=== PATIENT | male | born 1945 ===

== ENCOUNTER 2018-01-04 04:27 | Emergency (ER) | payer MEDICAID, MEDICARE, OTHER ==
[2018-01-04 04:30] VITALS: TEMP 97.7; BMI 26.7
[2018-01-04] MEDS ORDERED: Tetanus/Diphtheria Toxoids 0.5 ml Syringe IM ONE ×2 (04:53→05:04)
--- NOTE | 2018-01-04 05:01 | ED PDOC ---
HPI: Trauma/Fall - HPI History Per: Patient, Family History/Exam Limitations: language barrier Onset/Duration Of Symptoms: Hrs Location Of Injury: Posterior: Head Severity: Moderate Pain Scale Rating Of: 5 Associated Symptoms: denies: Dizziness, Dazed, LOC Additional Complaint(s): CC: head trauma HPI: 72 YO Male with PMH of HTN, HLD, and asthma presents to [facility] ED s/p head trauma. Per pt, he was sleeping in bed, and remembers waking up in the floor bleeding. Pt had pain in injury site but now rates the pain as moderate, 5/10. No hx of similar episodes in the past. Denies dizziness, headache, n/v/d/c and fevers. MD: Dr. Montero PMH: HTN, HLD, asthma SurgH: Pulmonary surgery 2004 SH: 45+yrs smoking hx, quit in 2004; occasional ETOH, no illicit drug use FH: hx of HTN Allergies: NDKA Meds: ASA, simvastatin, carvedilol, donepezil, fertilizing, singular, cyclobenzaprine, ketoconazole <Lori Robertson - Last Filed: 01/04/18 06:38> <Phillip Puri - Last Filed: 01/05/18 06:09> - HPI Time Seen by Provider: 01/04/18 04:41 Chief Complaint (Nursing): Trauma Supervising Attending Note - Supervising Attending Note The Documented history was done by the: Physician Skin Diver The documented physical exam was done by the: Physician Skin Diver The documented procedures were done by the: Physician Skin Diver - Attestation: I have personally seen and examined this patient.: Yes I have fully participated in the care of the patient.: Yes I have reviewed all pertinent clinical information, including history, physical exam and plan: Yes <Phillip Puri - Last Filed: 01/05/18 06:09> Past Medical History Vital Signs: Last Vital Signs Temp 97.7 F 01/04/18 04:36 Pulse 59 L 01/04/18 04:36 Resp 16 01/04/18 04:36 BP 131/67 01/04/18 04:36 Pulse Ox 95 01/04/18 04:36 - Medical History PMH: Asthma, HTN, Hyperlipidemia - Surgical History Other surgeries: pulmonary surgery 2004 - Family History Family History: States: Hypertension - Living Arrangements Living Arrangements: With Family - Social History Current smoker - smoking cessation education provided: No Ex-Smoker (has not smoked in the last 12 months): Yes (45+ year hx ) Alcohol: Occasional Drugs: Denies <Lori Robertson - Last Filed: 01/04/18 06:38> Vital Signs: Last Vital Signs Temp 97.7 F 01/04/18 04:36 Pulse 60 01/04/18 06:50 Resp 16 01/04/18 06:50 BP 120/60 01/04/18 06:50 Pulse Ox 98 01/04/18 06:50 <Phillip Puri - Last Filed: 01/05/18 06:09> - Allergies Allergies/Adverse Reactions: Allergies Allergy/AdvReac Type Severity Reaction Status Date / Time No Known Allergies Allergy Verified 01/04/18 04:39 Review of Systems Constitutional: Negative for: Fever, Chills Eyes: Negative for: Pain, Vision Change ENT: Negative for: Ear Pain, Ear Discharge Cardiovascular: Negative for: Chest Pain, Palpitations Respiratory: Negative for: Cough, Shortness of Breath Gastrointestinal: Negative for: Nausea Musculoskeletal: Negative for: Neck Pain, Shoulder Pain Neurological: Negative for: Weakness, Confusion, Altered Mental Status, Dizziness <Lori Robertson - Last Filed: 01/04/18 06:38> Physical Exam - Physical Exam Appears: Positive for: No Acute Distress Head Exam: Positive for: NORMOCEPHALIC (4cm verticle lac in the parietal bone, small edema surrounding the lac ) Skin: Positive for: Normal Color, Warm Eye Exam: Positive for: Normal appearance, EOMI, PERRL Neck: Positive for: Normal, Painless ROM Cardiovascular/Chest: Positive for: Regular Rate, Rhythm. Negative for: Murmur Respiratory: Positive for: Normal Breath Sounds Extremity: Positive for: Normal ROM Neurologic/Psych: Positive for: Alert, Oriented <AilynLori - Last Filed: 01/04/18 06:38> - ECG O2 Sat by Pulse Oximetry: 95 - Progress ED Course And Treament: Assessment/Plan: 72 YO Male with PMH of HTN, HLD and asthma is seen in ED s/p head lac after a fall. VS stable. Pt NAD -CT head w/o contrast -tetnus shot Ct Head w/o contrast EXAM: CT Head Without Intravenous Contrast EXAM DATE/TIME: 01/04/2018 4:53 AM CLINICAL HISTORY: 72 years old, male; Injury or trauma; Injury Head laceration. Back of the head; Initial encounter; Without residual foreign body; Scalp; Additional info: Head trauma TECHNIQUE: Axial computed tomography images of the head/brain without intravenous contrast. All CT scans at this facility use one or more dose reduction techniques, viz.: automated exposure control; ma/kV adjustment per patient size (including targeted exams where dose is matched to indication; i.e. head); or iterative reconstruction technique. Coronal and sagittal reformatted images were created and reviewed. 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 Areas of hypodensity in the white matter bilaterally, nonspecific in appearance , but most likely representing chronic small vessel ischemic changes, in a patient of this age. No significant acute abnormality identified. No acute hemorrhage seen within the brain. No acute extra-axial fluid collections visualized. No evidence of significant mass effect within the brain. VENTRICLES: No evidence of significant hydrocephalus. BONES/JOINTS: No acute fractures or other acute bony abnormality noted. SOFT TISSUES: Soft tissue swelling and multiple foci of air in the right upper posterior scalp, at the vertex/top of the head. The air is presumably secondary to the known soft tissue laceration. There is a 4 cm hematoma in the scalp in this area. VASCULATURE: Atherosclerotic calcification. SINUSES: Visualized paranasal sinuses appear clear. MASTOID AIR CELLS: Mastoid air cells appear clear. IMPRESSION: - No evidence of acute intracranial injury or fractures. - See above for remaining findings. Scalp lac is claned with 400ml of NS and betadine Repaired w/ [address] Post procedure VS stable, BP 110/60, HR 60 with O2 94 in RA Pt to be d/c home with OTC Tylenol for pain prn Pt to follow up with Dr. Montero for staple removal in 1 week, 7 days ER precautions given, please come back with dizziness, headache, nausea, blurry vision <Lori Robertson - Last Filed: 01/04/18 06:38> Procedures - Laceration/Wound Repair Head Wound Length (cm): 4 Wound's Depth, Shape: superficial Wound Explored: no foreign body removed Irrigated w/ Saline (ccs): 400 Betadine Prep?: Yes Anesthesia: 1% Lidocaine Wound Repaired With: [place] ([address] ) Wound Complexity: Simple <AilynLori - Last Filed: 01/04/18 06:38> Disposition - Patient ED Disposition Is Patient to be Admitted: No - Disposition Disposition: Routine/Home Disposition Time: 06:44 <Lori Robertson - Last Filed: 01/04/18 06:38> <Phillip Puir - Last Filed: 01/05/18 06:09> - Clinical Impression Clinical Impression: Laceration of scalp without foreign body, Head trauma - Disposition Referrals: Jos Olson MD [Staff Provider] - Condition: STABLE Additional Instructions: Pt to follow up with Dr. Montero for staple removal in 7 days ER precautions given, please come back with dizziness, headache, nausea, blurry vision Take OTC Tylenol for pain as needed Instructions: Concussion, Adult (DC), Closed Head Injury (DC), Laceration Repair With [place] (DC), Postconcussion Syndrome (DC) Forms: [employer] (Puerto Rican) Print Language: MONGOLIAN
[2018-01-04] MEDS ORDERED: Lidocaine 1% Inj (20ml) IJ ONE (06:06)
--- NOTE | 2018-01-04 06:14 | CT ---
EXAM: CT Head Without Intravenous Contrast EXAM DATE/TIME: 01/04/2018 4:53 AM CLINICAL HISTORY: 72 years old, male; Injury or trauma; Injury Head laceration. Back of the head; Initial encounter; Without residual foreign body; Scalp; Additional info: Head trauma TECHNIQUE: Axial computed tomography images of the head/brain without intravenous contrast. All CT scans at this facility use one or more dose reduction techniques, viz.: automated exposure control; ma/kV adjustment per patient size (including targeted exams where dose is matched to indication; i.e. head); or iterative reconstruction technique. Coronal and sagittal reformatted images were created and reviewed. 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 Areas of hypodensity in the white matter bilaterally, nonspecific in appearance, but most likely representing chronic small vessel ischemic changes, in a patient of this age. No significant acute abnormality identified. No acute hemorrhage seen within the brain. No acute extra-axial fluid collections visualized. No evidence of significant mass effect within the brain. VENTRICLES: No evidence of significant hydrocephalus. BONES/JOINTS: No acute fractures or other acute bony abnormality noted. SOFT TISSUES: Soft tissue swelling and multiple foci of air in the right upper posterior scalp, at the vertex/top of the head. The air is presumably secondary to the known soft tissue laceration. There is a 4 cm hematoma in the scalp in this area. VASCULATURE: Atherosclerotic calcification. SINUSES: Visualized paranasal sinuses appear clear. MASTOID AIR CELLS: Mastoid air cells appear clear. IMPRESSION: - No evidence of acute intracranial injury or fractures. - See above for remaining findings.
[2018-01-04 06:38] VITALS: PULSE 60
[2018-01-04 06:54] VITALS: BP 120/60; RESP 16; O2SAT 98
== END 2018-01-04 06:59 | disposition home or self-care (01) ==
LOC: H.ER 04:27
DX: S01.01XA Laceration without foreign body of scalp, initial encounter (principal); W06.XXXA Fall from bed, initial encounter; Y92.003 Bedroom of unspecified non-institutional (private) residence as the place of occurrence of the external cause; E78.5 Hyperlipidemia, unspecified; I10 Essential (primary) hypertension; J45.909 Unspecified asthma, uncomplicated; Z79.82 Long term (current) use of aspirin; Z82.49 Family history of ischemic heart disease and other diseases of the circulatory system; Z87.891 Personal history of nicotine dependence

== ENCOUNTER 2018-06-22 10:36 | Inpatient (IN) | payer MEDICARE, MEDICAID ==
[2018-06-22 10:36] VITALS: BMI 26.7
[2018-06-22 12:29] LABS: BASO % 0.7 % (0.0-2.0); EOS # 0.2 K/uL (0.0-0.7); EOS % 2.8 % (0.0-4.0); HEMOGLOBIN 13.1 g/dL (12.0-18.0); LYMPH # 1.3 K/uL (1.0-4.3); LYMPH % 18.1 % (20.0-40.0); MEAN CELL VOLUME 102.7 fl (80.0-94.0); MEAN CORPUSCULAR HEMOGLOBIN 34.2 pg (27.0-31.0); MEAN CORPUSCULAR HGB CONC 33.3 g/dL (33.0-37.0); MEAN PLATELET VOLUME 10.4 fl (7.2-11.7); MONO # 1.1 K/uL (0.0-0.8); MONO % 14.8 % (0.0-10.0); NEUT # 4.6 K/uL (1.8-7.0); NEUT % 63.6 % (50.0-75.0); NRBC % 0.2 % (0.0-0.0); RBC 3.84 Mil/uL (4.40-5.90); RED CELL DISTRIBUTION WIDTH 15.1 % (11.5-14.5); WHITE BLOOD COUNT 7.2 K/uL (4.8-10.8)
[2018-06-22 13:42] LABS: ALB/GLOB RATIO 0.8 (1.0-2.1); ALBUMIN 3.9 g/dL (3.5-5.0); CALCIUM 10.4 mg/dL (8.4-10.2)
[2018-06-22 13:50] LABS: INR 1.2
[2018-06-22 13:53] LABS: PARTIAL THROMBOPLASTIN TIME 43.1 Seconds (25.6-37.1)
--- NOTE | 2018-06-22 14:16 | US ---
Date of service: 06/22/2018 PROCEDURE: Bilateral lower extremity venous duplex Doppler. HISTORY: bilateral calf pain COMPARISON: None available. TECHNIQUE: Bilateral common femoral, superficial femoral, popliteal and posterior tibial veins were evaluated. Flow was assessed with color Doppler, compressibility, assessment of phasic flow and augmentation response. FINDINGS: COMMON FEMORAL VEIN: Right CFV: Unremarkable. Left CFV: Unremarkable. SUPERFICIAL FEMORAL VEIN: Right SFV: Unremarkable. Left SFV: Unremarkable. POPLITEAL VEIN: Right Popliteal: Unremarkable. Left Popliteal: Unremarkable. POSTERIOR TIBIAL VEIN: Right PTV: Unremarkable. Left PTV: Unremarkable. OTHER FINDINGS: None. IMPRESSION: No evidence of deep venous thrombosis.
[2018-06-22 15:28] LABS: SQUAMOUS EPITHIAL 4 /hpf (0-5); URINE AMORPHOUS SEDIMENT OCC /ul (<OCC); URINE BACTERIA OCC (<OCC); URINE BILIRUBIN NEGATIVE (NEGATIVE); URINE BLOOD LARGE (NEGATIVE); URINE CLARITY TURBID (Clear); URINE COLOR AMBER (YELLOW); URINE GLUCOSE (UA) NEG (Normal); URINE LEUKOCYTE ESTERASE NEG Leu/uL (Negative); URINE PROTEIN 100 mg/dL (NEGATIVE)
--- NOTE | 2018-06-22 17:14 | CT ---
Date of service: 06/22/2018 PROCEDURE: CT Abdomen and Pelvis without intravenous contrast HISTORY: elevated bilirubin, elevated LFT COMPARISON: Prior abdomen CT 09/08/[address] 05/25/2018. TECHNIQUE: Helical CT of the abdomen and pelvis was performed without oral or intravenous contrast as per referring physician request. Coronal and sagittal reformats were generated. Contrast dose: None Radiation dose: Total exam DLP = 642.66 mGy-cm. This CT exam was performed using one or more of the following dose reduction techniques: Automated exposure control, adjustment of the mA and/or kV according to patient size, and/or use of iterative reconstruction technique. FINDINGS: LOWER THORAX: A mild loculated right pleural effusion is evident with cardiomegaly. No pericardial or left pleural effusion evident. Underlying infiltrate is difficult exclude the right base. Small hiatal hernia is identified. LIVER: Mild hepatomegaly is identified. No focal hepatic mass appreciable. GALLBLADDER AND BILE DUCTS: Gallbladder is distended with retained calculi at the dependent portion likely intermixed with sludge. No significant mural thickening or pericholecystic fluid collection evident. PANCREAS: Unremarkable. No gross lesion or ductal dilatation. SPLEEN: Unremarkable. ADRENALS: Unremarkable. No mass. KIDNEYS AND URETERS: Nonspecific bilateral perinephric streaky changes are identified. No obstructive uropathy bilaterally. No radiodense urolithiasis identified. VASCULATURE: Nonaneurysmal abdominal aortic calcific atherosclerotic changes are identified. BOWEL: Stomach is collapsed. No bowel obstruction evident. Nonspecific streaky changes are identified at the bilateral para renal spaces as well as the inferior mid Mesentery which is of uncertain origin. No gross mural thickening seen throughout large or small bowel. No ascites or free intra peritoneal gas collection. APPENDIX: Not identified. No definite pattern to suggest appendicitis. PERITONEUM: Please see bowel section above. LYMPH NODES: Unremarkable. No enlarged lymph nodes. BLADDER: Bladder is partially contracted but with questionable pericystic reactive change and relatively prominent submucosal fat in a pattern that may reflect chronic inflammatory changes. Active, possible acute cystitis not excluded nevertheless. Clinically correlate further. REPRODUCTIVE: Unremarkable. BONES: A severe anterior wedge compression fracture of L1 is identified, a chronic finding. OTHER FINDINGS: None. IMPRESSION: 1. Findings suspicious but not definitive for potentially acute cystitis. Please see discussion above. 2. Nonspecific mid to inferior mesenteric reactive change as well as the bilateral pericolic gutters. No definitive enteritis or colitis pattern is appreciated specifically. Lack of contrast agents limits interpretation. No bowel obstruction identified. 3. Cholelithiasis within a distended gallbladder with likely intermixed sludge.
--- NOTE | 2018-06-22 17:47 | US ---
Date of service: 06/22/2018 HISTORY: elevated bilirubin, elevated LFT COMPARISON: June 22, 2018 CT abdomen and pelvis TECHNIQUE: Sonographic evaluation of the abdomen. FINDINGS: LIVER: Measures 17.3 cm. Hepatopedal blood flow. Fatty infiltration manifest ultrasonographically as increased echogenicity of the liver parenchyma. No mass. No intrahepatic bile duct dilatation. GALLBLADDER: Cholelithiasis. Negative study for gallbladder wall thickening, pericholecystic fluid, sonographic Spaulding's sign. Incidental finding(s): Sludge identified. COMMON BILE DUCT: Measures 5.0 mm. No stones. No dilatation. PANCREAS: Unremarkable as visualized. No mass. No ductal dilatation. RIGHT KIDNEY: Measures cm. Normal echogenicity. No calculus, mass, or hydronephrosis. LEFT KIDNEY: Measures cm. Normal echogenicity. No calculus, mass, or hydronephrosis. SPLEEN: Normal in size and contour. No mass. AORTA: No aneurysmal dilatation. IVC: Unremarkable. OTHER FINDINGS: Incompletely visualized right pleural effusion IMPRESSION: Cholelithiasis. No sonographic evidence of acute cholecystitis.
--- NOTE | 2018-06-22 18:54 | ED PDOC ---
Lower Extremity Pain/Injury Time Seen by Provider: 06/22/18 10:52 Chief Complaint (Nursing): Male Genitourinary Chief Complaint (Provider): Lower extremity pain History Per: Patient History/Exam Limitations: no limitations Onset/Duration Of Symptoms: Days Current Symptoms Are (Timing): Still Present Additional Complaint(s): 73 yo male with HTN, high cholesterol and asthma presents for evaluation of bilateral lower leg pain. Pt states 2 days ago he was talking a walk and began to felt fatigue. Pt states his entire body and specifically his lower legs felt weak. Pt states he is now having bilateral calf pain since. PT denies similar in the past. Pt states he did not have chest pain or SOB. Pt states he has had chest pain in the past and has been seen by cardiology, he was told to make appointment for cardiac echo. Pt states he also noticed blood in his urine y esterday. Pt states he has no abdominal pain, no dysuria. No blood in urine in the past. Past Medical History Reviewed: Historical Data, Nursing Documentation, Vital Signs Vital Signs: Last Vital Signs Temp 98.8 F 06/22/18 11:08 Pulse 77 06/22/18 11:08 Resp 18 06/22/18 11:08 BP 132/84 06/22/18 11:08 Pulse Ox 97 06/22/18 11:08 - Medical History PMH: Asthma, HTN, Hyperlipidemia - Surgical History Surgical History: No Surg Hx - Family History Family History: States: Hypertension - Living Arrangements Living Arrangements: With Family - Social History Current smoker - smoking cessation education provided: No Alcohol: None Drugs: Denies - Allergies Allergies/Adverse Reactions: Allergies Allergy/AdvReac Type Severity Reaction Status Date / Time No Known Allergies Allergy Verified 01/04/18 04:39 Review of Systems ROS Statement: Except As Marked, All Systems Reviewed And Found Negative Constitutional: Negative for: Fever, Chills Respiratory: Negative for: Cough, Shortness of Breath Gastrointestinal: Negative for: Nausea, Vomiting, Diarrhea Genitourinary Male: Positive for: Hematuria. Negative for: Dysuria, Penile Discharge, Rash, Penile Pain Neurological: Negative for: Weakness, Numbness, Altered Mental Status Physical Exam - Reviewed Nursing Documentation Reviewed: Yes Vital Signs Reviewed: Yes - Physical Exam Appears: Positive for: Well, Non-toxic, No Acute Distress Head Exam: Positive for: ATRAUMATIC, NORMAL INSPECTION, NORMOCEPHALIC Skin: Positive for: Normal Color, Warm, DRY Eye Exam: Positive for: Normal appearance ENT: Positive for: Normal ENT Inspection Neck: Positive for: Normal, Painless ROM Cardiovascular/Chest: Positive for: Regular Rate, Rhythm Respiratory: Positive for: Normal Breath Sounds. Negative for: Accessory Muscle Use, Respiratory Distress Gastrointestinal/Abdominal: Positive for: Normal Exam, Soft Back: Positive for: Normal Inspection Extremity: Positive for: Normal ROM, Calf Tenderness. Negative for: Deformity, Swelling Neurologic/Psych: Positive for: Alert, Oriented - Laboratory Results Result Diagrams: 06/22/18 12:10 06/22/18 13:20 - ECG O2 Sat by Pulse Oximetry: 97 Medical Decision Making Medical Decision Making: (-) DVT on US H/H normal Hyperbilirubinemia, elevated AST, elevated BUN and creatinine. Discussed abnormal labs with Dr. Kline. CPK, abdominal US and abdominal CT ordered. Discussed labs, US and CT with Dr. Mishra. States if CPK is elevated abnormalities in labs not related to GI issue. Discussed with Dr. Washburn for admission - Cardiology consult and Nephrology consult. Disposition - Clinical Impression Clinical Impression: Rhabdomyolysis - Patient ED Disposition Is Patient to be Admitted: Yes - Disposition Disposition Time: 19:27 Condition: STABLE Instructions: Rhabdomyolysis (DC) Forms: [employer] (Czech) - Pt Status Changed To: Hospital Disposition Of: Inpatient - Admit Certification Admit to Inpatient:: After my assessment, the patient will require hospitalization for at least two midnights. This is because of the severity of symptoms shown, intensity of services needed, and/or the medical risk in this patient being treated as an outpatient. - POA Present On Arrival: None
[2018-06-22] MEDS ORDERED: Sodium Chloride 0.9% 1,000 ML IV STA (19:10)
[2018-06-23] MEDS ORDERED: Sodium Chloride 0.9% 1,000 ML IV SCH (02:00)
[2018-06-23] MEDS ORDERED: Albuterol HFA 90 mcg/actuation (8 g) INH PRN (02:27)
[2018-06-23] MEDS ORDERED: Ergocalciferol 50,000 Intl Units Cap PO SCH (02:30)
[2018-06-23] MEDS: Sodium Chloride 0.9% 1,000 ML IV SCH ×5 (03:39→22:37)
[2018-06-23 05:55] LABS: HEMOGLOBIN 11.6 g/dL (12.0-18.0); MEAN CELL VOLUME 101.9 fl (80.0-94.0); MEAN CORPUSCULAR HEMOGLOBIN 33.5 pg (27.0-31.0); MEAN CORPUSCULAR HGB CONC 32.8 g/dL (33.0-37.0); RBC 3.46 Mil/uL (4.40-5.90); RED CELL DISTRIBUTION WIDTH 14.8 % (11.5-14.5); WHITE BLOOD COUNT 6.3 K/uL (4.8-10.8)
[2018-06-23 06:08] LABS: ALB/GLOB RATIO 0.8 (1.0-2.1); ALBUMIN 3.3 g/dL (3.5-5.0); CALCIUM 9.6 mg/dL (8.4-10.2)
[2018-06-23] MEDS: Lidocaine 5% Patch TD SCH ×2 (09:18→22:38)
[2018-06-23] MEDS: Pantoprazole 40 mg EC Tab PO SCH (09:24)
--- NOTE | 2018-06-23 12:02 | CP.PCM.CON ---
History of Present Illness - History of Present Illness History of Present Illness: 73 yo HM with pmh/o hTn x 3 yrs, hyperlipidemia ,asthma, s/p rt lung surgery was admitted with cc/o b/l leg pains and crams, and back. pt was found to have elevated cpk's , and increased bun/c r. pt denies any cp, palpitation, no n ausea, no vomitings, no abd.pain, no fever, no cough,, no sob, no edema of leg, c/o dark color urine yesterday. Review of Systems - Review of Systems Review of Systems: b/l leg pains, cramps - Constitutional Constitutional: As Per HPI - EENT Eyes: As Per HPI Ears: As Per HPI Nose/Mouth/Throat: As Per HPI - Cardiovascular Cardiovascular: As Per HPI - Respiratory Respiratory: As Per HPI - Gastrointestinal Gastrointestinal: As Per HPI - Genitourinary Genitourinary: As Per HPI - Musculoskeletal Musculoskeletal: As Per HPI, Back Pain, Muscle Cramps, Myalgias - Integumentary Integumentary: As Per HPI - Neurological Neurological: As Per HPI - Psychiatric Psychiatric: As Per HPI - Endocrine Endocrine: As Per HPI - Hematologic/Lymphatic Hematologic: As Per HPI Past Patient History - Past Medical History & Family History Past Medical History?: Yes - Past Social History Smoking Status: Former Smoker Alcohol: < 2 Drinks/Day Drugs: Denies - CARDIAC Hx Hypercholesterolemia: Yes Hx Hypertension: Yes - PULMONARY Hx Asthma: Yes - PSYCHIATRIC Hx Substance Use: No - SURGICAL HISTORY Hx Surgeries: Yes Other/Comment: Lung surgery 2004 (for infection). - ANESTHESIA Hx Anesthesia: Yes Hx Anesthesia Reactions: No Hx Malignant Hyperthermia: No Meds Allergies/Adverse Reactions: Allergies Allergy/AdvReac Type Severity Reaction Status Date / Time No Known Allergies Allergy Verified 01/04/18 04:39 - Medications Medications: Current Medications Albuterol (Ventolin Hfa 90 Mcg/Actuation (8 G)) 1 puff INH Q6 PRN PRN Reason: Shortness of Breath Aspirin (Ecotrin) 81 mg PO DAILY [facility] Last Admin: 06/23/18 09:22 Dose: 81 mg Carvedilol (Coreg) 12.5 mg PO DAILY [facility] Last Admin: 06/23/18 09:21 Dose: 12.5 mg Cyclobenzaprine HCl (Flexeril) 10 mg PO TID PRN PRN Reason: Muscle spasm Donepezil HCl (Aricept) 5 mg PO DAILY [facility] Last Admin: 06/23/18 09:21 Dose: 5 mg Ergocalciferol (Drisdol 50,000 Intl Units Cap) 1 cap PO QWK [facility] Folic Acid (Folic Acid) 1 mg PO DAILY [facility] Last Admin: 06/23/18 09:22 Dose: 1 mg Sodium Chloride (Sodium Chloride 0.9%) 1,000 mls @ 1,000 mls/hr IV .Q1H [facility] Stop: 06/24/18 01:55 Last Admin: 06/23/18 02:07 Dose: 1,000 mls/hr Sodium Chloride (Sodium Chloride 0.9%) 1,000 mls @ 200 mls/hr IV .Q5H [facility] Stop: 06/24/18 02:08 Last Admin: 06/23/18 08:27 Dose: 200 mls/hr Ketoconazole (Nizoral) 1 applic TOP DAILY [facility] Last Admin: 06/23/18 09:24 Dose: Not Given Lidocaine (Lidoderm) 1 ea TD Q12 [facility] Last Admin: 06/23/18 09:18 Dose: Not Given Loratadine (Claritin) 10 mg PO DAILY [facility] Last Admin: 06/23/18 09:21 Dose: 10 mg Pantoprazole Sodium (Protonix Ec Tab) 40 mg PO DAILY [facility] Last Admin: 06/23/18 09:24 Dose: 40 mg Tiotropium [place] (Spiriva) 18 mcg INH HS [facility] Physical Exam - Constitutional Appears: Non-toxic, No Acute Distress - Head Exam Head Exam: ATRAUMATIC, NORMAL INSPECTION, NORMOCEPHALIC - Eye Exam Eye Exam: EOMI, Normal appearance, PERRL Pupil Exam: NORMAL ACCOMODATION - ENT Exam ENT Exam: Mucous Membranes Moist - Neck Exam Neck exam: Positive for: Full Rom, Normal Inspection - Respiratory Exam Respiratory Exam: Clear to Auscultation Bilateral, NORMAL BREATHING PATTERN Additional comments: scar on rt lung near scapula - Cardiovascular Exam Cardiovascular Exam: REGULAR RHYTHM, +S2 - GI/Abdominal Exam GI & Abdominal Exam: Normal Bowel Sounds, Soft - Rectal Exam Rectal Exam: Deferred - Neurological Exam Neurological exam: Alert, CN II-XII Intact, Normal Gait, Oriented x3 - Skin Skin Exam: Normal Color, Warm Results - Vital Signs Recent Vital Signs: Last Vital Signs Temp 98.6 F 06/23/18 11:34 Pulse 80 06/23/18 11:34 Resp 18 06/23/18 11:34 BP 159/80 H 06/23/18 11:34 Pulse Ox 96 06/23/18 11:34 - Labs Result Diagrams: 06/23/18 05:47 06/23/18 05:47 Labs: Laboratory Results - last 24 hr 06/22/18 06/22/18 06/22/18 12:10 13:20 13:20 WBC 7.2 RBC 3.84 L Hgb 13.1 Hct 39.4 MCV 102.7 H MCH 34.2 H MCHC 33.3 RDW 15.1 H Plt Count 142 MPV 10.4 Neut % (Auto) 63.6 Lymph % (Auto) 18.1 L [place] % (Auto) 14.8 H Eos % (Auto) 2.8 Baso % (Auto) 0.7 Neut # (Auto) 4.6 Lymph # (Auto) 1.3 [place] # (Auto) 1.1 H Eos # (Auto) 0.2 Baso # (Auto) 0.0 PT 14.0 H INR 1.2 APTT 43.1 H Sodium 139 Potassium 3.6 Chloride 108 H Carbon Dioxide 21 L Anion Gap 14 BUN 35 H Creatinine 3.0 H Est GFR ( Amer) 25 Est GFR (Non-Af Amer) 21 Random Glucose 110 Calcium 10.4 H Total Bilirubin 2.9 H AST 1059 H ALT 177 H Alkaline Phosphatase 81 Total Creatine Kinase Total Protein 8.6 H Albumin 3.9 Globulin 4.7 H Albumin/Globulin Ratio 0.8 L Urine Color Urine Clarity Urine pH Ur Specific Amelia Urine Protein Urine Glucose (UA) Urine Ketones Urine Blood Urine Nitrate Urine Bilirubin Urine Urobilinogen Ur Leukocyte Esterase Urine Microscopic WBC Ur Squamous Epith Cells Amorphous Sediment Urine Bacteria 06/22/18 06/22/18 06/23/18 15:15 18:01 05:47 WBC 6.3 RBC 3.46 L Hgb 11.6 L Hct 35.3 MCV 101.9 H MCH 33.5 H MCHC 32.8 L RDW 14.8 H Plt Count 109 L D MPV Neut % (Auto) Lymph % (Auto) [place] % (Auto) Eos % (Auto) Baso % (Auto) Neut # (Auto) Lymph # (Auto) [place] # (Auto) Eos # (Auto) Baso # (Auto) PT INR APTT Sodium Potassium Chloride Carbon Dioxide Anion Gap BUN Creatinine Est GFR ( Amer) Est GFR (Non-Af Amer) Random Glucose Calcium Total Bilirubin AST ALT Alkaline Phosphatase Total Creatine Kinase 54334 H Total Protein Albumin Globulin Albumin/Globulin Ratio Urine Color Opal Urine Clarity Turbid Urine pH 5.0 Ur Specific Amelia 1.021 Urine Protein 100 Urine Glucose (UA) Neg Urine Ketones Negative Urine Blood Large Urine Nitrate Negative Urine Bilirubin Negative Urine Urobilinogen 2.0 Ur Leukocyte Esterase Neg Urine Microscopic WBC 1 Ur Squamous Epith Cells 4 Amorphous Sediment Occ H Urine Bacteria Occ H 06/23/18 05:47 WBC RBC Hgb Hct MCV MCH MCHC RDW Plt Count MPV Neut % (Auto) Lymph % (Auto) [place] % (Auto) Eos % (Auto) Baso % (Auto) Neut # (Auto) Lymph # (Auto) [place] # (Auto) Eos # (Auto) Baso # (Auto) PT INR APTT Sodium 141 Potassium 3.9 Chloride 113 H Carbon Dioxide 22 Anion Gap 10 BUN 37 H Creatinine 2.7 H Est GFR ( Amer) 28 Est GFR (Non-Af Amer) 23 Random Glucose 107 Calcium 9.6 Total Bilirubin 2.3 H AST 747 H D ALT 152 H Alkaline Phosphatase 61 Total Creatine Kinase 9001 H Total Protein 7.5 Albumin 3.3 L Globulin 4.2 H Albumin/Globulin Ratio 0.8 L Urine Color Urine Clarity Urine pH Ur Specific Amelia Urine Protein Urine Glucose (UA) Urine Ketones Urine Blood Urine Nitrate Urine Bilirubin Urine Urobilinogen Ur Leukocyte Esterase Urine Microscopic WBC Ur Squamous Epith Cells Amorphous Sediment Urine Bacteria Assessment & Plan - Assessment and Plan (Free Text) Assessment: 73 yo HM with pmh/o htn, hld, asthma, s/p rt lung surgery with b/l leg pain, cramps and elavted bun/cr, cpk's 1. SHARIFA most likley sec to ATn sec to rhabdo 2. Rhabdo 3. Abnormal lft's sec to rhabdo 4. HTN c/w current anti htn meds, low na diet c/w ivf ns at 200 ml/hr daily bmp d/c lisinopril d/c atorvastatin d/c ibuprofen Plan: as above
--- NOTE | 2018-06-23 17:37 | CP.PCM.HP ---
History of Present Illness - History of Present Illness History of Present Illness: 73 y/o M with a PMHx of HTN, HLD and asthma was admitted for evaluation and management of rhabdomyolysis. Pt presented to ED due to bilateral lower leg severe pain, locate on calf maily, that began 2 days ago and associated with fatigue and extremities weakness. --Today, pt was seen and examined by bedside with Dr Washburn. Pt reports feeling beeter, denies chest pain, SOB, nausea or vomiting. Pt afebrile overnight. Pt reports her Simvastatin was recently changed to Ezetimibe and Rosuvastatin. Present on Admission - Present on Admission Any Indicators Present on Admission: No Review of Systems - Constitutional Constitutional: Fatigue. absent: Fever - EENT Nose/Mouth/Throat: absent: Epistaxis, Nasal Congestion, Dysphagia, Tongue Swelling, Facial Pain - Cardiovascular Cardiovascular: absent: Chest Pain, Dyspnea - Respiratory Respiratory: absent: Cough, Hemoptysis, Pain with Coughing - Gastrointestinal Gastrointestinal: absent: Abdominal Pain, Nausea, Vomiting - Genitourinary Genitourinary: absent: Dysuria, Hematuria, Nocturia, Urinary Incontinence - Musculoskeletal Additional comments: Positive for bilateral lower leg pain. Past Patient History - Past Social History Alcohol: None Drugs: Denies - CARDIAC Hx Hypertension: Yes - PULMONARY Hx Asthma: Yes - PSYCHIATRIC Hx Substance Use: No - SURGICAL HISTORY Hx Surgeries: Yes Other/Comment: Lung surgery 2004 (for infection). - ANESTHESIA Hx Anesthesia: Yes Hx Anesthesia Reactions: No Hx Malignant Hyperthermia: No Meds Allergies/Adverse Reactions: Allergies Allergy/AdvReac Type Severity Reaction Status Date / Time No Known Allergies Allergy Verified 01/04/18 04:39 Physical Exam - Constitutional Appears: No Acute Distress - Head Exam Head Exam: NORMAL INSPECTION - Eye Exam Eye Exam: EOMI, Normal appearance - ENT Exam ENT Exam: Mucous Membranes Moist - Neck Exam Neck exam: Positive for: Full Rom. Negative for: Lymphadenopathy, Meningismus - Respiratory Exam Respiratory Exam: NORMAL BREATHING PATTERN. absent: Rales, Rhonchi, Wheezes - Cardiovascular Exam Cardiovascular Exam: +S1, +S2 - GI/Abdominal Exam GI & Abdominal Exam: Soft. absent: Distended, Guarding, Organomegaly, Tenderness - Extremities Exam Extremities exam: Positive for: full ROM, normal inspection. Negative for: pedal edema - Neurological Exam Neurological exam: Alert, Oriented x3 Results - Vital Signs Recent Vital Signs: Last Vital Signs Temp 98.1 F 06/23/18 14:45 Pulse 81 06/23/18 14:45 Resp 16 06/23/18 14:45 BP 128/71 06/23/18 14:45 Pulse Ox 97 06/23/18 14:45 - Labs Result Diagrams: 06/23/18 05:47 06/23/18 05:47 Labs: Laboratory Results - last 24 hr 06/22/18 06/23/18 06/23/18 18:01 05:47 05:47 WBC 6.3 RBC 3.46 L Hgb 11.6 L Hct 35.3 MCV 101.9 H MCH 33.5 H MCHC 32.8 L RDW 14.8 H Plt Count 109 L D Sodium 141 Potassium 3.9 Chloride 113 H Carbon Dioxide 22 Anion Gap 10 BUN 37 H Creatinine 2.7 H Est GFR ( Amer) 28 Est GFR (Non-Af Amer) 23 Random Glucose 107 Calcium 9.6 Total Bilirubin 2.3 H AST 747 H D ALT 152 H Alkaline Phosphatase 61 Total Creatine Kinase 97607 H 9001 H Total Protein 7.5 Albumin 3.3 L Globulin 4.2 H Albumin/Globulin Ratio 0.8 L Assessment & Plan - Assessment and Plan (Free Text) Assessment: 73 y/o M with a PMHx of HTN, HLD and asthma was admitted for evaluation and management of rhabdomyolysis. PLAN: --Admit to Med-Surg --IV Fluids --Hepatitis acute panel due to transaminitis. --Cardiology consult, Dr Chopra --Nephrology consult, Dr Bishop --Home meds resumed --Continue management as ordered. Case discussed with Dr Wu Rivero PGY-2 - Date & Time Date: 06/23/18 Time: 10:45
--- NOTE | 2018-06-23 18:53 | CP.PCM.CON ---
History of Present Illness - History of Present Illness History of Present Illness: I was asked to see patient by Dr Washburn. Patient was seen 06/23/18 at 18 10 Patient is a 73 year old male with HTN, hyperchoelsterolemia who presents with weakness of the legs and carmping. he states symptoms began about 5 days ago, and he presented to [facility] for further management. The patient was found to be in rhabdomyolysis. He currently denies chest pain or dyspnea. He is receiving IV fluids. Review of Systems - Constitutional Constitutional: absent: As Per HPI, Anorexia, Chills, Daytime Sleepiness, Excessive Sweating, Fatigue, Fever, Frequent Falls, Headache, Increased Appetite, Lethargy, Malaise, Night Sweats, Snoring, Sleep Apnea, Weight Gain, Weight Loss, Weakness, Other - EENT Eyes: absent: As Per HPI, Blind Spots, Blurred Vision, Change in Vision, Decreased Night Vision, Diplopia, Discharge, Dry Eye, Exophthalmos, Floaters, Irritation, Itchy Eyes, Loss of Peripheral Vision, Pain, Photophobia, Requires Corrective Lenses, Sees Flashes, Spots in Vision, Tunnel Vision, Other Visual Disturbances, Loss of Vision, Other Ears: absent: As Per HPI, Decreased Hearing, Ear Discharge, Ear Pain, Tinnitus, Abnormal Hearing, Disequilibrium, Dizziness, Other Nose/Mouth/Throat: absent: As Per HPI, Epistaxis, Nasal Congestion, Nasal Discharge, Nasal Obstruction, Nasal Trauma, Nose Pain, Post Nasal Drip, Sinus Pain, Sinus Pressure, Bleeding Gums, Change in Voice, Dental Pain, Dry Mouth, Dysphagia, Halitosis, Hoarsness, Lip Swelling, Mouth Lesions, Mouth Pain, Odynophagia, Sore Throat, Throat Swelling, Tongue Swelling, Facial Pain, Neck Pain, Neck Mass, Other - Cardiovascular Cardiovascular: absent: As Per HPI, Acrocyanosis, Chest Pain, Chest Pain at Rest, Chest Pain with Activity, Claudication, Diaphoresis, Dyspnea, Dyspnea on Exertion, Edema, Irregular Heart Rhythm, Pain Radiating to Arm/Neck/Jaw, Leg Edema, Leg Ulcers, Lightheadedness, Orthopnea, Palpitations, Paroxysmal Nocturnal Dyspnea, Pedal Edema, Radiating Pain, Rapid Heart Rate, Slow Heart Rate, Syncope, Other - Respiratory Respiratory: absent: As Per HPI, Cough, Dyspnea, Hemoptysis, Dyspnea on Exertion, Wheezing, Snoring, Stridor, Pain on Inspiration, Chest Congestion, Excessive Mucous Production, Change in Mucous Color, Pain with Coughing, Other - Gastrointestinal Gastrointestinal: absent: As Per HPI, Abdominal Pain, Belching, Bloating, Change in Bowel Habits, Change in Stool Character, Coffee Ground Emesis, Constipation, Cramping, Diarrhea, Dyspepsia, Dysphagia, Early Satiety, Excessive Flatus, Fecal Incontinence, Heartburn, Hematemesis, Hematochezia, Loose Stools, Melena, Nausea, Odynophagia, Temesmus, Vomiting, Other - Genitourinary Genitourinary: absent: As Per HPI, Change in Urinary Stream, Difficulty Urinati ng, Dysuria, Flank Pain, Hematuria, Pyuria, Nocturia, Urinary Incontinence, Urinary Frequency, Urinary Hesitance, Urinary Urgency, Voiding Freq/Small Amts, Freq UTI, Hx Renal/Bladder Calculi, Hx /Renal Surgery, Bladder Distension, Other - Musculoskeletal Musculoskeletal: Muscle Cramps - Integumentary Integumentary: absent: As Per HPI, Acne, Alopecia, Bleeding Lesions, Change in Hair, Change in Nails, Change in Pigmentation, Changing Lesions, Dry Skin, Erythema, Furuncle, Hirsutism, Lesions, New Lesions, Non-Healing Lesions, Photosensitivity, Pruritus, Rash, Skin Pain, Skin Ulcer, Sores, Striae, Swelling, Unusual Bruising, Wounds, Jaundice, Other - Neurological Neurological: absent: As Per HPI, Abnormal Gait, Abnormal Hearing, Abnormal Movements, Abnormal Speech, Behavioral Changes, Burning Sensations, Confusion, Convulsions, Disequilibrium, Dizziness, Numbness, Focal Weakness, Frequent Falls, Headaches, Lack of Coordination, Loss of Vision, Memory Loss, Paresthesias, Radicular Pain, Restless Legs, Sensory Deficit, Syncope, Tingling, Tremor, Vertigo, Weakness, Other Visual Disturbances, Other - Psychiatric Psychiatric: absent: As Per HPI, Abnormal Sleep Pattern, Anhedonia, Anxiety, Auditory Hallucinations, Behavioral Changes, Change in Appetite, Change in Libido, Confusion, Depression, Difficulty Concentrating, Hallucinations, Homicidal Ideation, Hopelessness, Irritability, Memory Loss, Mood Swings, Panic Attacks, Paranoia, Suicidal Ideation, Visual Hallucinations, Tactile Hallucinations, Other - Endocrine Endocrine: absent: As Per HPI, Change in Body Appearance, Change in Libido, Cold Intolorance, Deepening of Voice, Excessive Sweating, Fatigue, Flushing, Heat Intolorance, Increase in Ring/Shoe/Hat Size, Palpitations, Polydipsia, Polyphagia, Polyuria, Other - Hematologic/Lymphatic Hematologic: absent: As Per HPI, Easy Bleeding, Easy Bruising, Lymphadenopathy, Other Past Patient History - Past Social History Alcohol: None Drugs: Denies - CARDIAC Hx Hypertension: Yes - PULMONARY Hx Asthma: Yes - PSYCHIATRIC Hx Substance Use: No - SURGICAL HISTORY Hx Surgeries: Yes Other/Comment: Lung surgery 2004 (for infection). - ANESTHESIA Hx Anesthesia: Yes Hx Anesthesia Reactions: No Hx Malignant Hyperthermia: No Meds Allergies/Adverse Reactions: Allergies Allergy/AdvReac Type Severity Reaction Status Date / Time No Known Allergies Allergy Verified 01/04/18 04:39 - Medications Medications: Current Medications Albuterol (Ventolin Hfa 90 Mcg/Actuation (8 G)) 1 puff INH Q6 PRN PRN Reason: Shortness of Breath Aspirin (Ecotrin) 81 mg PO DAILY [facility] Last Admin: 06/23/18 09:22 Dose: 81 mg Carvedilol (Coreg) 12.5 mg PO DAILY [facility] Last Admin: 06/23/18 09:21 Dose: 12.5 mg Cyclobenzaprine HCl (Flexeril) 10 mg PO TID PRN PRN Reason: Muscle spasm Donepezil HCl (Aricept) 5 mg PO DAILY [facility] Last Admin: 06/23/18 09:21 Dose: 5 mg Ergocalciferol (Drisdol 50,000 Intl Units Cap) 1 cap PO QWK [facility] Folic Acid (Folic Acid) 1 mg PO DAILY [facility] Last Admin: 06/23/18 09:22 Dose: 1 mg Sodium Chloride (Sodium Chloride 0.9%) 1,000 mls @ 1,000 mls/hr IV .Q1H [facility] Stop: 06/24/18 01:55 Last Admin: 06/23/18 02:07 Dose: 1,000 mls/hr Sodium Chloride (Sodium Chloride 0.9%) 1,000 mls @ 200 mls/hr IV .Q5H [facility] Stop: 06/24/18 02:08 Last Admin: 06/23/18 14:09 Dose: 200 mls/hr Ketoconazole (Nizoral) 1 applic TOP DAILY [facility] Last Admin: 06/23/18 09:24 Dose: Not Given Lidocaine (Lidoderm) 1 ea TD Q12 [facility] Last Admin: 06/23/18 09:18 Dose: Not Given Loratadine (Claritin) 10 mg PO DAILY [facility] Last Admin: 06/23/18 09:21 Dose: 10 mg Pantoprazole Sodium (Protonix Ec Tab) 40 mg PO DAILY [facility] Last Admin: 06/23/18 09:24 Dose: 40 mg Tiotropium [place] (Spiriva) 18 mcg INH HS [facility] Physical Exam - Constitutional Appears: Non-toxic - Head Exam Head Exam: NORMAL INSPECTION - Eye Exam Eye Exam: Normal appearance - ENT Exam ENT Exam: Mucous Membranes Moist, Normal Exam, Normal Oropharynx - Neck Exam Neck exam: Positive for: Full Rom, Normal Inspection. Negative for: Lymphadenopathy, Tenderness, Thyromegaly - Respiratory Exam Respiratory Exam: Clear to Auscultation Bilateral, NORMAL BREATHING PATTERN. absent: Rales, Rhonchi, Wheezes - Cardiovascular Exam Cardiovascular Exam: REGULAR RHYTHM, RRR, +S1, +S2. absent: JVD - GI/Abdominal Exam GI & Abdominal Exam: Normal Bowel Sounds, Soft. absent: Distended, Firm, Guarding, Hernia, Organomegaly, Pulsatile Mass, Rebound, Rigid, Tenderness - Rectal Exam Rectal Exam: Deferred - Extremities Exam Extremities exam: Positive for: normal inspection, pedal pulses present. Negative for: calf tenderness, pedal edema, tenderness - Back Exam Back exam: NORMAL INSPECTION - Neurological Exam Neurological exam: Alert, Oriented x3 - Psychiatric Exam Psychiatric exam: Normal Affect - Skin Skin Exam: Dry, Intact, Normal Color Results - Vital Signs Recent Vital Signs: Last Vital Signs Temp 98.2 F 06/23/18 18:28 Pulse 86 06/23/18 18:28 Resp 16 06/23/18 18:28 BP 166/86 H 06/23/18 18:28 Pulse Ox 96 06/23/18 18:28 - Labs Result Diagrams: 06/23/18 05:47 06/23/18 05:47 Labs: Laboratory Results - last 24 hr 06/22/18 06/23/18 06/23/18 18:01 05:47 05:47 WBC 6.3 RBC 3.46 L Hgb 11.6 L Hct 35.3 MCV 101.9 H MCH 33.5 H MCHC 32.8 L RDW 14.8 H Plt Count 109 L D Sodium 141 Potassium 3.9 Chloride 113 H Carbon Dioxide 22 Anion Gap 10 BUN 37 H Creatinine 2.7 H Est GFR ( Amer) 28 Est GFR (Non-Af Amer) 23 Random Glucose 107 Calcium 9.6 Total Bilirubin 2.3 H AST 747 H D ALT 152 H Alkaline Phosphatase 61 Total Creatine Kinase 46540 H 9001 H Total Protein 7.5 Albumin 3.3 L Globulin 4.2 H Albumin/Globulin Ratio 0.8 L - EKG Data EKG Interpreted by: Myself Assessment & Plan (1) Rhabdomyolysis Assessment and Plan: likely medication related. tolerating IV fluids. creatinine and CPK being monitored by renal. Status: Acute (2) Hypercholesterolemia Assessment and Plan: likely statin induced rhabdomyoplysis. consider change to Repatha. Status: Acute (3) Renal insufficiency Assessment and Plan: followed by renal. Status: Acute
[2018-06-23] MEDS: Tiotropium 18 mcg Cap For Inhalation INH SCH (22:37)
[2018-06-24] MEDS: Pantoprazole 40 mg EC Tab PO SCH (09:37)
[2018-06-24] MEDS: Lidocaine 5% Patch TD SCH ×2 (09:38→21:04)
[2018-06-24 12:54] LABS: HEPATITIS A IGM NEGATIVE (NEGATIVE)
[2018-06-24 12:55] LABS: HEPATITIS B CORE AB NEGATIVE (NEGATIVE); HEPATITIS B SURFACE AG Negative (NEGATIVE); HEPATITIS C ANTIBODY Negative (NEGATIVE)
[2018-06-24] MEDS: Sodium Chloride 0.9% 1,000 ML IV SCH ×2 (13:46→20:24)
[2018-06-24 13:52] LABS: ALB/GLOB RATIO 0.7 (1.0-2.1); ALBUMIN 2.9 g/dL (3.5-5.0); CALCIUM 8.6 mg/dL (8.4-10.2)
[2018-06-24] MEDS: Potassium Chloride 20 mEq ER Tab PO SCH (15:30)
--- NOTE | 2018-06-24 18:17 | CP.PCM.PN ---
Subjective - Date & Time of Evaluation Date of Evaluation: 06/24/18 Time of Evaluation: 18:17 - Subjective Subjective: 73 yo HM with pmh/o hTn x 3 yrs, hyperlipidemia ,asthma, s/p rt lung surgery was admitted with cc/o b/l leg pains and crams, and back. pt was found to have elevated cpk's , and increased bun/c r. pt denies any cp, palpitation, no na usea, no vomitings, no abd.pain, no fever, no cough,, no sob, no edema of leg, c/o dark color urine pt claims, his leg pains are improving, feeling better today, Objective - Vital Signs/Intake and Output Vital Signs (last 24 hours): Temp Pulse Resp BP Pulse Ox 98 F 79 20 151/71 H 93 L 06/24/18 16:20 06/24/18 16:20 06/24/18 16:20 06/24/18 16:20 06/24/18 16:20 - Medications Medications: Current Medications Albuterol (Ventolin Hfa 90 Mcg/Actuation (8 G)) 1 puff INH Q6 PRN PRN Reason: Shortness of Breath Aspirin (Ecotrin) 81 mg PO DAILY [facility] Last Admin: 06/24/18 09:36 Dose: 81 mg Carvedilol (Coreg) 12.5 mg PO DAILY [facility] Last Admin: 06/24/18 09:35 Dose: 12.5 mg Cyclobenzaprine HCl (Flexeril) 10 mg PO TID PRN PRN Reason: Muscle spasm Donepezil HCl (Aricept) 5 mg PO DAILY [facility] Last Admin: 06/24/18 09:35 Dose: 5 mg Ergocalciferol (Drisdol 50,000 Intl Units Cap) 1 cap PO QWK [facility] Folic Acid (Folic Acid) 1 mg PO DAILY [facility] Last Admin: 06/24/18 09:36 Dose: 1 mg Sodium Chloride (Sodium Chloride 0.9%) 1,000 mls @ 200 mls/hr IV .Q5H [facility] Stop: 06/25/18 13:28 Last Admin: 06/24/18 13:46 Dose: 200 mls/hr Ketoconazole (Nizoral) 1 applic TOP DAILY [facility] Last Admin: 06/24/18 09:37 Dose: 1 applic Lidocaine (Lidoderm) 1 ea TD Q12 [facility] Last Admin: 06/24/18 09:38 Dose: 1 ea Loratadine (Claritin) 10 mg PO DAILY [facility] Last Admin: 06/24/18 09:35 Dose: 10 mg Pantoprazole Sodium (Protonix Ec Tab) 40 mg PO DAILY [facility] Last Admin: 06/24/18 09:37 Dose: 40 mg Potassium Chloride (K-Dur 20 Meq Er Tab) 40 meq PO DAILY [facility] Last Admin: 06/24/18 15:30 Dose: 40 meq Tiotropium [place] (Spiriva) 18 mcg INH HS [facility] Last Admin: 06/23/18 22:37 Dose: 18 mcg - Labs Labs: 06/23/18 05:47 06/24/18 12:38 PT 14.0 Seconds (9.8-13.1) H 06/22/18 13:20 INR 1.2 06/22/18 13:20 APTT 43.1 Seconds (25.6-37.1) H 06/22/18 13:20 - Constitutional Appears: Well, Non-toxic, Toxic, No Acute Distress - Head Exam Head Exam: ATRAUMATIC, NORMAL INSPECTION, NORMOCEPHALIC - Eye Exam Eye Exam: EOMI, Normal appearance, PERRL Pupil Exam: NORMAL ACCOMODATION - ENT Exam ENT Exam: Mucous Membranes Moist - Neck Exam Neck Exam: Full ROM - Respiratory Exam Respiratory Exam: Accessory Muscle Use, NORMAL BREATHING PATTERN - Cardiovascular Exam Cardiovascular Exam: REGULAR RHYTHM, +S1, +S2 - GI/Abdominal Exam GI & Abdominal Exam: Soft, Normal Bowel Sounds - Rectal Exam Rectal Exam: Deferred - Extremities Exam Extremities Exam: Full ROM, Normal Inspection - Neurological Exam Neurological Exam: Alert, Awake, CN II-XII Intact, Normal Gait, Oriented x3 - Psychiatric Exam Psychiatric exam: Normal Affect, Normal Mood - Skin Skin Exam: Normal Color, Warm Assessment and Plan - Assessment and Plan (Free Text) Assessment: 73 yo HM with pmh/o htn, hld, asthma, s/p rt lung surgery with b/l leg pain, cramps and elavted bun/cr, cpk's 1. SHARIFA most likley sec to ATn sec to rhabdo 2. Rhabdo 3. Abnormal lft's sec to rhabdo 4. HTN c/w current anti htn meds, low na diet c/w ivf ns at 200 ml/hr daily bmp renal function and cpk's are improving, c/w ivf
[2018-06-24] MEDS: Tiotropium 18 mcg Cap For Inhalation INH SCH (21:04)
[2018-06-25] MEDS: Sodium Chloride 0.9% 1,000 ML IV SCH ×6 (02:21→19:52)
[2018-06-25 06:59] LABS: HEMOGLOBIN 11.4 g/dL (12.0-18.0); MEAN CELL VOLUME 102.3 fl (80.0-94.0); MEAN CORPUSCULAR HGB CONC 33.2 g/dL (33.0-37.0); RBC 3.36 Mil/uL (4.40-5.90); RED CELL DISTRIBUTION WIDTH 15.3 % (11.5-14.5); WHITE BLOOD COUNT 6.5 K/uL (4.8-10.8)
[2018-06-25 07:08] LABS: ALB/GLOB RATIO 0.7 (1.0-2.1); CALCIUM 8.3 mg/dL (8.4-10.2)
[2018-06-25] MEDS: Potassium Chloride 20 mEq ER Tab PO SCH (09:10)
[2018-06-25] MEDS: Pantoprazole 40 mg EC Tab PO SCH (09:10)
[2018-06-25] MEDS: Lidocaine 5% Patch TD SCH ×2 (09:11→21:33)
--- NOTE | 2018-06-25 12:13 | CP.PCM.PN ---
Subjective - Date & Time of Evaluation Date of Evaluation: 06/25/18 Time of Evaluation: 12:13 - Subjective Subjective: 73 yo HM with pmh/o hTn x 3 yrs, hyperlipidemia ,asthma, s/p rt lung surgery was admitted with cc/o b/l leg pains and crams, and back. pt was found to have elevated cpk's , and increased bun/c r. pt denies any cp, palpitation, no na usea, no vomitings, no abd.pain, no fever, no cough,, no sob, no edema of leg, c/o dark color urine pt claims, his leg pains are improving, feeling better today, cpk's about 3000, lft's are improving, no sob Objective - Vital Signs/Intake and Output Vital Signs (last 24 hours): Temp Pulse Resp BP Pulse Ox 98.0 F 76 19 152/70 H 94 L 06/25/18 08:03 06/25/18 09:10 06/25/18 08:03 06/25/18 09:10 06/25/18 08:03 - Medications Medications: Current Medications Albuterol (Ventolin Hfa 90 Mcg/Actuation (8 G)) 1 puff INH Q6 PRN PRN Reason: Shortness of Breath Aspirin (Ecotrin) 81 mg PO DAILY [facility] Last Admin: 06/25/18 09:09 Dose: 81 mg Carvedilol (Coreg) 12.5 mg PO DAILY [facility] Last Admin: 06/25/18 09:10 Dose: 12.5 mg Cyclobenzaprine HCl (Flexeril) 10 mg PO TID PRN PRN Reason: Muscle spasm Donepezil HCl (Aricept) 5 mg PO DAILY [facility] Last Admin: 06/25/18 09:09 Dose: 5 mg Ergocalciferol (Drisdol 50,000 Intl Units Cap) 1 cap PO QWK [facility] Folic Acid (Folic Acid) 1 mg PO DAILY [facility] Last Admin: 06/25/18 09:09 Dose: 1 mg Sodium Chloride (Sodium Chloride 0.9%) 1,000 mls @ 200 mls/hr IV .Q5H [facility] Stop: 06/25/18 13:28 Last Admin: 06/25/18 12:05 Dose: 200 mls/hr Ketoconazole (Nizoral) 1 applic TOP DAILY [facility] Last Admin: 06/25/18 09:10 Dose: 1 applic Lidocaine (Lidoderm) 1 ea TD Q12 [facility] Last Admin: 06/25/18 09:11 Dose: 1 ea Loratadine (Claritin) 10 mg PO DAILY [facility] Last Admin: 06/25/18 09:10 Dose: 10 mg Pantoprazole Sodium (Protonix Ec Tab) 40 mg PO DAILY [facility] Last Admin: 06/25/18 09:10 Dose: 40 mg Potassium Chloride (K-Dur 20 Meq Er Tab) 40 meq PO DAILY [facility] Last Admin: 06/25/18 09:10 Dose: 40 meq Tiotropium [place] (Spiriva) 18 mcg INH HS [facility] Last Admin: 06/24/18 21:04 Dose: 18 mcg - Labs Labs: 06/25/18 06:05 06/25/18 06:05 PT 14.0 Seconds (9.8-13.1) H 06/22/18 13:20 INR 1.2 06/22/18 13:20 APTT 43.1 Seconds (25.6-37.1) H 06/22/18 13:20 - Constitutional Appears: Well, Non-toxic, No Acute Distress - Head Exam Head Exam: ATRAUMATIC, NORMAL INSPECTION, NORMOCEPHALIC - Eye Exam Eye Exam: EOMI, Normal appearance, PERRL Pupil Exam: NORMAL ACCOMODATION - ENT Exam ENT Exam: Mucous Membranes Moist - Neck Exam Neck Exam: Full ROM - Respiratory Exam Respiratory Exam: Clear to Ausculation Bilateral, NORMAL BREATHING PATTERN - Cardiovascular Exam Cardiovascular Exam: REGULAR RHYTHM, +S1, +S2 - GI/Abdominal Exam GI & Abdominal Exam: Soft, Normal Bowel Sounds - Rectal Exam Rectal Exam: Deferred - Neurological Exam Neurological Exam: Alert, Awake, CN II-XII Intact, Oriented x3 - Psychiatric Exam Psychiatric exam: Normal Mood - Skin Skin Exam: Normal Color, Warm Assessment and Plan - Assessment and Plan (Free Text) Assessment: 73 yo HM with pmh/o htn, hld, asthma, s/p rt lung surgery with b/l leg pain, cramps and elavted bun/cr, cpk's 1. SHARIFA most likely sec to ATN sec to rhabdo 2. Rhabdo 3. Abnormal lft's sec to rhabdo 4. HTN c/w current anti htn meds, low na diet c/w ivf ns at 200 ml/hr daily bmp renal function and cpk's are improving, c/w ivf, consider physical therapy evaluation and ambulation, OOB to chair
[2018-06-25] MEDS ORDERED: Sodium Chloride 0.9% 1,000 ML IV SCH (12:15)
--- NOTE | 2018-06-25 16:19 | CP.PCM.PN ---
Subjective - Date & Time of Evaluation Date of Evaluation: 06/25/18 Time of Evaluation: 10:55 - Subjective Subjective: 73 y/o M was seen and examined by bedside with Dr Washburn. Pt reported feeling well, denied leg pain, was able to do physical therapy. Pt afebrile, tolerating PO with NO acute events overnight. Objective - Vital Signs/Intake and Output Vital Signs (last 24 hours): Temp Pulse Resp BP Pulse Ox 98.0 F 78 20 162/78 H 93 L 06/25/18 16:06 06/25/18 16:06 06/25/18 16:06 06/25/18 16:06 06/25/18 16:06 - Medications Medications: Current Medications Albuterol (Ventolin Hfa 90 Mcg/Actuation (8 G)) 1 puff INH Q6 PRN PRN Reason: Shortness of Breath Aspirin (Ecotrin) 81 mg PO DAILY [facility] Last Admin: 06/25/18 09:09 Dose: 81 mg Carvedilol (Coreg) 12.5 mg PO DAILY [facility] Last Admin: 06/25/18 09:10 Dose: 12.5 mg Cyclobenzaprine HCl (Flexeril) 10 mg PO TID PRN PRN Reason: Muscle spasm Donepezil HCl (Aricept) 5 mg PO DAILY [facility] Last Admin: 06/25/18 09:09 Dose: 5 mg Ergocalciferol (Drisdol 50,000 Intl Units Cap) 1 cap PO QWK [facility] Folic Acid (Folic Acid) 1 mg PO DAILY [facility] Last Admin: 06/25/18 09:09 Dose: 1 mg Sodium Chloride (Sodium Chloride 0.9%) 1,000 mls @ 999 mls/hr IV .Q1H1M [facility] Stop: 06/26/18 12:14 Last Admin: 06/25/18 13:03 Dose: 999 mls/hr Sodium Chloride (Sodium Chloride 0.9%) 1,000 mls @ 200 mls/hr IV .Q5H [facility] Stop: 06/26/18 13:56 Last Admin: 06/25/18 14:21 Dose: 200 mls/hr Ketoconazole (Nizoral) 1 applic TOP DAILY [facility] Last Admin: 06/25/18 09:10 Dose: 1 applic Lidocaine (Lidoderm) 1 ea TD Q12 [facility] Last Admin: 06/25/18 09:11 Dose: 1 ea Loratadine (Claritin) 10 mg PO DAILY [facility] Last Admin: 06/25/18 09:10 Dose: 10 mg Pantoprazole Sodium (Protonix Ec Tab) 40 mg PO DAILY [facility] Last Admin: 06/25/18 09:10 Dose: 40 mg Potassium Chloride (K-Dur 20 Meq Er Tab) 40 meq PO DAILY [facility] Last Admin: 06/25/18 09:10 Dose: 40 meq Tiotropium [employer] (Spiriva) 18 mcg INH HS [facility] Last Admin: 06/24/18 21:04 Dose: 18 mcg - Labs Labs: 06/25/18 06:05 06/25/18 06:05 PT 14.0 Seconds (9.8-13.1) H 06/22/18 13:20 INR 1.2 06/22/18 13:20 APTT 43.1 Seconds (25.6-37.1) H 06/22/18 13:20 - Additional Findings Additional findings: - Constitutional Appears: No Acute Distress - Head Exam Head Exam: NORMAL INSPECTION - Eye Exam Eye Exam: EOMI, Normal appearance - ENT Exam ENT Exam: Mucous Membranes Moist - Neck Exam Neck exam: Positive for: Full Rom. Negative for: Lymphadenopathy, Meningismus - Respiratory Exam Respiratory Exam: NORMAL BREATHING PATTERN. absent: Rales, Rhonchi, Wheezes - Cardiovascular Exam Cardiovascular Exam: +S1, +S2 - GI/Abdominal Exam GI & Abdominal Exam: Soft. absent: Distended, Guarding, Organomegaly, Tenderness - Extremities Exam Extremities exam: Positive for: full ROM, normal inspection. Negative for: pedal edema - Neurological Exam Neurological exam: Alert, Oriented x3 Assessment and Plan - Assessment and Plan (Free Text) Assessment: 73 y/o M with a PMHx of HTN, HLD and asthma was admitted for evaluation and management of rhabdomyolysis. PLAN: --Afebrile, stable --Rhabdomyolysis likely to statin medications. --CPK and cratinine progressively decreasing. --Echocardiography ordered for claudication evaluation. --IV NS bolus x1 today and continues with maintenance at 200mL/hr. --Cardiology consult, Dr Chopra --Nephrology consult, Dr Bishop --Continue management as ordered. Case discussed with Dr Wu Rivero PGY-2
--- NOTE | 2018-06-25 19:32 | CARD ---
APPROVED REPORT Date of service: 06/25/2018 EXAM: Two-dimensional and M-mode echocardiogram with Doppler and color Doppler. Other Information Quality : GoodRhythm : NSR INDICATION Hypertension/HCVD 2D DIMENSIONS IVSd1.00 (0.7-1.1cm)LVDd4.84 (3.9-5.9cm) LVOT Diameter2.34 (1.8-2.4cm)PWd1.00 (0.7-1.1cm) IVSs1.37 (0.8-1.2cm)LVDs4.05 (2.5-4.0cm) FS (%) 16.3 %PWs1.65 (0.8-1.2cm) M-Mode DIMENSIONS Left Atrium (MM)4.06 (2.5-4.0cm)IVSd1.09 (0.7-1.1cm) Aortic Root3.66 (2.2-3.7cm)LVDd5.84 (4.0-5.6cm) Aortic Cusp Exc.1.91 (1.5-2.0cm)PWd1.31 (0.7-1.1cm) IVSs1.56 cmFS (%) 33 % LVDs3.91 (2.0-3.8cm)PWs1.50 cm Aortic Valve AoV Peak Mkzosgif618.2cm/sAoV VTI26.9cmAO Peak GR.7mmHg LVOT Peak Aronbqan042.6cm/sLVOT VTI23.01cmAO Mean GR.4mmHg JHONY (VMAX)1.92zk9NQN (VTI)1.91cm2 Mitral Valve MV E Plqioppw93.2cm/sMV DECEL BMYO278nkHS A Rwdqtncn23.5cm/s MV RRR32kgF/A ratio1.9MVA (PHT)4.11cm2 TDI Lateral E' Peak V13.61cm/sMedial E' Peak V10.92cm/sE/Lateral E'7.3 E/Medial E'9.1 Tricuspid Valve TR Peak Kfdmmcpc426dd/sRAP URWQVKZG75pmJlUF Peak Gr.40mmHg GPDG35ghWe LEFT VENTRICLE The left ventricle is normal size. There is normal left ventricular wall thickness. The left ventricular systolic function is normal. The estimated ejection fraction is 55-60% No regional wall motion abnormalities noted.. Transmitral Doppler flow pattern is Grade II-pseudonormal filling dynamics. No left ventricle thrombus noted on this study. There is no ventricular septal defect visualized. There is no left ventricular aneurysm. There is no mass noted in the left ventricle. RIGHT VENTRICLE The right ventricle is normal size. There is normal right ventricular wall thickness. The right ventricular systolic function is normal. ATRIA The left atrium is mildly dilated. The right atrium size is normal. The interatrial septum is intact with no evidence for an atrial septal defect. AORTIC VALVE The aortic valve is normal in structure. No aortic regurgitation is present. There is no aortic valvular stenosis. There is no aortic valvular vegetation. MITRAL VALVE The mitral valve is normal in structure. There is no evidence of mitral valve prolapse. There is no mitral valve stenosis. There is mild to moderate mitral valve regurgitation noted. TRICUSPID VALVE The tricuspid valve is normal in structure. There is mild to moderate tricuspid valve regurgitation noted. RVSP is calculated at 50 mm Hg. There is no tricuspid valve prolapse or vegetation. There is no tricuspid valve stenosis. PULMONIC VALVE The pulmonary valve is normal in structure. There is no pulmonic valvular regurgitation. There is no pulmonic valvular stenosis. GREAT VESSELS The aortic root is normal in size. The ascending aorta is normal in size. The pulmonary artery is normal. The IVC is normal in size and collapses >50% with inspiration. PERICARDIAL EFFUSION There is no pericardial effusion. There is no pleural effusion. <Conclusion> The estimated ejection fraction is 55-60% Transmitral Doppler flow pattern is Grade II-pseudonormal filling dynamics. The left atrium is mildly dilated. There is mild to moderate mitral valve regurgitation noted. There is mild to moderate tricuspid valve regurgitation noted. RVSP is calculated at 50 mm Hg.
[2018-06-25] MEDS: Tiotropium 18 mcg Cap For Inhalation INH SCH (21:33)
[2018-06-26] MEDS: Sodium Chloride 0.9% 1,000 ML IV SCH ×3 (01:06→10:34)
[2018-06-26 06:43] LABS: HEMOGLOBIN 11.9 g/dL (12.0-18.0); MEAN CELL VOLUME 105.8 fl (80.0-94.0); MEAN CORPUSCULAR HEMOGLOBIN 34.5 pg (27.0-31.0); MEAN CORPUSCULAR HGB CONC 32.6 g/dL (33.0-37.0); RBC 3.46 Mil/uL (4.40-5.90); RED CELL DISTRIBUTION WIDTH 15.2 % (11.5-14.5); WHITE BLOOD COUNT 7.5 K/uL (4.8-10.8)
[2018-06-26 06:56] LABS: CALCIUM 8.1 mg/dL (8.4-10.2)
[2018-06-26] MEDS: Lidocaine 5% Patch TD SCH ×2 (09:33→22:16)
[2018-06-26] MEDS: Potassium Chloride 20 mEq ER Tab PO SCH (09:33)
[2018-06-26] MEDS: Pantoprazole 40 mg EC Tab PO SCH (09:35)
[2018-06-26] MEDS ORDERED: Sodium Chloride 0.9% 1,000 ML IV SCH ×3 (11:00→13:55)
--- NOTE | 2018-06-26 11:00 | CP.PCM.PN ---
Subjective - Date & Time of Evaluation Date of Evaluation: 06/26/18 Time of Evaluation: 11:00 - Subjective Subjective: patient seen and examined at bedside. Pt reported feeling better though c/o mild sob since last night, now on NC at 2 lpm. Denies CP, cough, leg pain, afebrile. Objective - Vital Signs/Intake and Output Vital Signs (last 24 hours): Temp Pulse Resp BP Pulse Ox 98.0 F 80 19 186/84 H 92 L 06/26/18 08:08 06/26/18 10:31 06/26/18 08:08 06/26/18 10:31 06/26/18 10:31 - Medications Medications: Current Medications Albuterol (Ventolin Hfa 90 Mcg/Actuation (8 G)) 1 puff INH Q6 PRN PRN Reason: Shortness of Breath Aspirin (Ecotrin) 81 mg PO DAILY [facility] Last Admin: 06/26/18 09:32 Dose: 81 mg Carvedilol (Coreg) 12.5 mg PO DAILY [facility] Last Admin: 06/26/18 09:32 Dose: 12.5 mg Cyclobenzaprine HCl (Flexeril) 10 mg PO TID PRN PRN Reason: Muscle spasm Donepezil HCl (Aricept) 5 mg PO DAILY [facility] Last Admin: 06/26/18 09:32 Dose: 5 mg Ergocalciferol (Drisdol 50,000 Intl Units Cap) 1 cap PO QWK [facility] Folic Acid (Folic Acid) 1 mg PO DAILY [facility] Last Admin: 06/26/18 09:33 Dose: 1 mg Sodium Chloride (Sodium Chloride 0.9%) 1,000 mls @ 999 mls/hr IV .Q1H1M [facility] Stop: 06/26/18 12:14 Last Admin: 06/25/18 13:03 Dose: 999 mls/hr Sodium Chloride (Sodium Chloride 0.9%) 1,000 mls @ 200 mls/hr IV .Q5H [facility] Stop: 06/26/18 13:56 Last Admin: 06/26/18 10:34 Dose: 200 mls/hr Sodium Chloride (Sodium Chloride 0.9%) 1,000 mls @ 999 mls/hr IV .Q1H1M [facility] Stop: 06/27/18 10:50 Ketoconazole (Nizoral) 1 applic TOP DAILY [facility] Last Admin: 06/26/18 09:35 Dose: 1 applic Lidocaine (Lidoderm) 1 ea TD Q12 [facility] Last Admin: 06/26/18 09:33 Dose: 1 ea Loratadine (Claritin) 10 mg PO DAILY [facility] Last Admin: 06/26/18 09:32 Dose: 10 mg Pantoprazole Sodium (Protonix Ec Tab) 40 mg PO DAILY [facility] Last Admin: 06/26/18 09:35 Dose: 40 mg Potassium Chloride (K-Dur 20 Meq Er Tab) 40 meq PO DAILY [facility] Last Admin: 06/26/18 09:33 Dose: 40 meq Tiotropium [place] (Spiriva) 18 mcg INH HS [facility] Last Admin: 06/25/18 21:33 Dose: 18 mcg - Labs Labs: 06/26/18 05:45 06/26/18 05:45 PT 14.0 Seconds (9.8-13.1) H 06/22/18 13:20 INR 1.2 06/22/18 13:20 APTT 43.1 Seconds (25.6-37.1) H 06/22/18 13:20 - Constitutional Appears: No Acute Distress - Head Exam Head Exam: NORMAL INSPECTION - Respiratory Exam Respiratory Exam: Clear to Ausculation Bilateral. absent: Decreased Breath Sounds - Cardiovascular Exam Cardiovascular Exam: REGULAR RHYTHM, +S1, +S2 - GI/Abdominal Exam GI & Abdominal Exam: Soft, Normal Bowel Sounds. absent: Distended, Tenderness - Extremities Exam Extremities Exam: absent: Calf Tenderness, Pedal Edema - Neurological Exam Neurological Exam: Alert, Awake, Oriented x3 Assessment and Plan - Assessment and Plan (Free Text) Assessment: 73 y/o M with a PMHx of HTN, HLD and asthma was admitted for evaluation and management of rhabdomyolysis. PLAN: - Afebrile, stable - CPK elevation noted today - Creatinine progressively decreasing. - Echocardiography: EF 55-60%, mild to moderate MR - IV NS bolus x1 today and continues with maintenance at 200mL/hr. - Cardiology consult, Dr Chopra - Nephrology consult, Dr Bishop - for CXR today, f/u - Continue management as ordered. Case discussed with Dr Washburn
--- NOTE | 2018-06-26 12:11 | RAD ---
Date of service: 06/26/2018 HISTORY: sob COMPARISON: Chest radiographs 11/30/2012. TECHNIQUE: Chest PA and lateral FINDINGS: LUNGS: Bilateral basilar infiltrates are suspected though not demonstrated from potential atelectasis, right greater than left. PLEURA: Small bilateral pleural effusions are identified greater the right than left as well. No pneumothorax bilaterally. CARDIOVASCULAR: No aortic atherosclerotic calcification present. Normal cardiac size. No pulmonary vascular congestion. OSSEOUS STRUCTURES: No significant abnormalities. VISUALIZED UPPER ABDOMEN: Normal. OTHER FINDINGS: None. IMPRESSION: Interval bilateral mild pleural effusions right greater than left as well as infiltrates or atelectasis.
--- NOTE | 2018-06-26 17:00 | CT ---
Date of service: 06/26/2018 PROCEDURE: CT Chest without contrast HISTORY: R/o infiltrates COMPARISON: Comparison is made with the previous study dated 05/25/2018 TECHNIQUE: Contiguous axial images were obtained through the chest without intravenous contrast enhancement. Sagittal and coronal reconstructions were performed. Radiation dose: Total exam DLP = 464.29 mGy-cm. This CT exam was performed using one or more of the following dose reduction techniques: Automated exposure control, adjustment of the mA and/or kV according to patient size, and/or use of iterative reconstruction technique. FINDINGS: LUNGS: Interval appearance of large airspace consolidation in the right lower lobe. Again seen is cavitary lesion at the superior segment of the right lower lobe. There are foci of calcifications seen at and adjacent to the cavitary lesion. Partial atelectasis of the left lower lobe due to pleural effusion is noted. MEDIASTINUM: Unremarkable thoracic aorta. No aneurysm. Normal sized heart. Main pulmonary artery is mildly enlarged. No lymphadenopathy. Small foci of aortic atherosclerotic calcification. PLEURA: Interval appearance of moderate to large right pleural effusion surrounding the right lung may contains septation. The possibility of localized right pleural effusion also cannot be excluded. There is moderate size left pleural effusion noted new compared to the previous exam. BONES: No fracture. No destructive lesion. UPPER ABDOMEN: No significant interval changes noted. OTHER FINDINGS: None. IMPRESSION: Interval appearance of large right lower lobe airspace consolidation involving approximately the entire right lower lobe. Again noted is cavitary lesion at the right lower lobe. Interval appearance of large right pleural effusion which could be localized and contains septation. Interval appearance of moderate size left pleural effusion.
--- NOTE | 2018-06-26 18:21 | CP.PCM.PN ---
Subjective - Date & Time of Evaluation Date of Evaluation: 06/26/18 Time of Evaluation: 18:21 - Subjective Subjective: 73 yo HM with pmh/o hTn x 3 yrs, hyperlipidemia ,asthma, s/p rt lung surgery was admitted with cc/o b/l leg pains and crams, and back. pt was found to have elevated cpk's , and increased bun/c r. pt denies any cp, palpitation, no danyel sea, no vomitings, no abd.pain, no fever, no cough,, no sob, no edema of leg, c/o dark color urine pt is c/o sob and edema of legs and UE, no cp, no abd. pain Objective - Vital Signs/Intake and Output Vital Signs (last 24 hours): Temp Pulse Resp BP Pulse Ox 97.3 F L 76 20 167/78 H 94 L 06/26/18 16:21 06/26/18 16:21 06/26/18 16:21 06/26/18 16:21 06/26/18 16:21 - Medications Medications: Current Medications Albuterol (Ventolin Hfa 90 Mcg/Actuation (8 G)) 1 puff INH Q6 PRN PRN Reason: Shortness of Breath Aspirin (Ecotrin) 81 mg PO DAILY [facility] Last Admin: 06/26/18 09:32 Dose: 81 mg Carvedilol (Coreg) 12.5 mg PO DAILY [facility] Last Admin: 06/26/18 09:32 Dose: 12.5 mg Cyclobenzaprine HCl (Flexeril) 10 mg PO TID PRN PRN Reason: Muscle spasm Donepezil HCl (Aricept) 5 mg PO DAILY [facility] Last Admin: 06/26/18 09:32 Dose: 5 mg Ergocalciferol (Drisdol 50,000 Intl Units Cap) 1 cap PO QWK [facility] Folic Acid (Folic Acid) 1 mg PO DAILY [facility] Last Admin: 06/26/18 09:33 Dose: 1 mg Furosemide (Lasix) 40 mg IV DAILY [facility] Last Admin: 06/26/18 15:18 Dose: 40 mg Ketoconazole (Nizoral) 1 applic TOP DAILY [facility] Last Admin: 06/26/18 09:35 Dose: 1 applic Lidocaine (Lidoderm) 1 ea TD Q12 [facility] Last Admin: 06/26/18 09:33 Dose: 1 ea Loratadine (Claritin) 10 mg PO DAILY [facility] Last Admin: 06/26/18 09:32 Dose: 10 mg Pantoprazole Sodium (Protonix Ec Tab) 40 mg PO DAILY [facility] Last Admin: 06/26/18 09:35 Dose: 40 mg Potassium Chloride (K-Dur 20 Meq Er Tab) 40 meq PO DAILY [facility] Last Admin: 06/26/18 09:33 Dose: 40 meq Tiotropium [place] (Spiriva) 18 mcg INH HS [facility] Last Admin: 06/25/18 21:33 Dose: 18 mcg - Labs Labs: 06/26/18 05:45 06/26/18 05:45 PT 14.0 Seconds (9.8-13.1) H 06/22/18 13:20 INR 1.2 06/22/18 13:20 APTT 43.1 Seconds (25.6-37.1) H 06/22/18 13:20 - Constitutional Appears: Well, Non-toxic, Toxic, No Acute Distress - Head Exam Head Exam: ATRAUMATIC, NORMAL INSPECTION, NORMOCEPHALIC - Eye Exam Eye Exam: EOMI, Normal appearance, PERRL - ENT Exam ENT Exam: Mucous Membranes Moist - Neck Exam Neck Exam: Full ROM - Respiratory Exam Respiratory Exam: Rales, NORMAL BREATHING PATTERN - Cardiovascular Exam Cardiovascular Exam: REGULAR RHYTHM, +S1, +S2 - GI/Abdominal Exam GI & Abdominal Exam: Soft, Normal Bowel Sounds - Extremities Exam Additional comments: 1-2+ edema - Neurological Exam Neurological Exam: Alert, Awake, CN II-XII Intact, Oriented x3 - Psychiatric Exam Psychiatric exam: Normal Mood - Skin Skin Exam: Normal Color, Warm Assessment and Plan - Assessment and Plan (Free Text) Assessment: 73 yo HM with pmh/o htn, hld, asthma, s/p rt lung surgery with b/l leg pain, cramps and elavted bun/cr, cpk's 1. SHARIFA most likely sec to ATN sec to rhabdo 2. Rhabdo 3. Abnormal lft's sec to rhabdo 4. HTN c/w current anti htn meds, low na diet will d/c ivf daily bmp renal function is improving cpk's are high, pt received lasix 40 mg ivp x1 this afternoon will give another lasix 40 mg x 1 now
[2018-06-26] MEDS: Tiotropium 18 mcg Cap For Inhalation INH SCH (22:16)
[2018-06-27 08:04] LABS: HEMOGLOBIN 12.2 g/dL (12.0-18.0); MEAN CORPUSCULAR HEMOGLOBIN 34.1 pg (27.0-31.0); MEAN CORPUSCULAR HGB CONC 33.5 g/dL (33.0-37.0); RBC 3.58 Mil/uL (4.40-5.90); WHITE BLOOD COUNT 6.5 K/uL (4.8-10.8)
[2018-06-27 08:33] LABS: ALB/GLOB RATIO 0.7 (1.0-2.1); CALCIUM 8.4 mg/dL (8.4-10.2)
[2018-06-27] MEDS: Potassium Chloride 20 mEq ER Tab PO SCH (09:15)
[2018-06-27] MEDS: Lidocaine 5% Patch TD SCH ×2 (09:16→21:55)
[2018-06-27] MEDS: Pantoprazole 40 mg EC Tab PO SCH (09:18)
--- NOTE | 2018-06-27 11:28 | CP.PCM.PN ---
Subjective - Date & Time of Evaluation Date of Evaluation: 06/27/18 Time of Evaluation: 11:28 - Subjective Subjective: 73 yo HM with pmh/o hTn x 3 yrs, hyperlipidemia ,asthma, s/p rt lung surgery was admitted with cc/o b/l leg pains and crams, and back. pt was found to have elevated cpk's , and increased bun/c r. pt is feeling better, no sob, pt is oob to chair, still c/o slight leg pains Objective - Vital Signs/Intake and Output Vital Signs (last 24 hours): Temp Pulse Resp BP Pulse Ox 97.9 F 76 20 138/73 95 06/27/18 08:39 06/27/18 08:39 06/27/18 08:39 06/27/18 09:15 06/27/18 08:39 - Medications Medications: Current Medications Albuterol (Ventolin Hfa 90 Mcg/Actuation (8 G)) 1 puff INH Q6 PRN PRN Reason: Shortness of Breath Aspirin (Ecotrin) 81 mg PO DAILY [facility] Last Admin: 06/27/18 09:14 Dose: 81 mg Carvedilol (Coreg) 12.5 mg PO DAILY [facility] Last Admin: 06/27/18 09:14 Dose: 12.5 mg Cyclobenzaprine HCl (Flexeril) 10 mg PO TID PRN PRN Reason: Muscle spasm Donepezil HCl (Aricept) 5 mg PO DAILY [facility] Last Admin: 06/27/18 09:13 Dose: 5 mg Ergocalciferol (Drisdol 50,000 Intl Units Cap) 1 cap PO QWK [facility] Folic Acid (Folic Acid) 1 mg PO DAILY [facility] Last Admin: 06/27/18 09:14 Dose: 1 mg Furosemide (Lasix) 40 mg IV DAILY [facility] Last Admin: 06/27/18 09:15 Dose: 40 mg Ketoconazole (Nizoral) 1 applic TOP DAILY [facility] Last Admin: 06/27/18 09:17 Dose: 1 applic Lidocaine (Lidoderm) 1 ea TD Q12 [facility] Last Admin: 06/27/18 09:16 Dose: 1 ea Loratadine (Claritin) 10 mg PO DAILY [facility] Last Admin: 06/27/18 09:14 Dose: 10 mg Pantoprazole Sodium (Protonix Ec Tab) 40 mg PO DAILY [facility] Last Admin: 06/27/18 09:18 Dose: 40 mg Potassium Chloride (K-Dur 20 Meq Er Tab) 40 meq PO DAILY [facility] Last Admin: 06/27/18 09:15 Dose: 40 meq Sodium Bicarbonate (Sodium Bicarbonate Tab) 650 mg PO Q8 [facility] Tiotropium [place] (Spiriva) 18 mcg INH HS [facility] Last Admin: 06/26/18 22:16 Dose: 18 mcg - Labs Labs: 06/27/18 07:00 06/27/18 07:00 PT 14.0 Seconds (9.8-13.1) H 06/22/18 13:20 INR 1.2 06/22/18 13:20 APTT 43.1 Seconds (25.6-37.1) H 06/22/18 13:20 - Constitutional Appears: Well, Non-toxic, Toxic, No Acute Distress - Head Exam Head Exam: NORMAL INSPECTION, NORMOCEPHALIC - Eye Exam Eye Exam: EOMI, Normal appearance, PERRL Pupil Exam: NORMAL ACCOMODATION - ENT Exam ENT Exam: Mucous Membranes Moist - Respiratory Exam Respiratory Exam: Decreased Breath Sounds, NORMAL BREATHING PATTERN Additional comments: decreased bs at bases, occ basal crackles+ - Cardiovascular Exam Cardiovascular Exam: REGULAR RHYTHM, +S1, +S2 - GI/Abdominal Exam GI & Abdominal Exam: Soft, Normal Bowel Sounds - Extremities Exam Additional comments: rt leg is slightly swollen - Neurological Exam Neurological Exam: Alert, Awake, CN II-XII Intact, Normal Gait, Oriented x3 - Psychiatric Exam Psychiatric exam: Normal Mood - Skin Skin Exam: Normal Color, Warm Assessment and Plan - Assessment and Plan (Free Text) Assessment: 73 yo HM with pmh/o htn, hld, asthma, s/p rt lung surgery with b/l leg pain, cramps and elavted bun/cr, cpk's 1. SHARIFA most likely sec to ATN sec to rhabdo 2. Rhabdo 3. Abnormal lft's sec to rhabdo 4. HTN 5. Hypokalemia c/w current anti htn meds, low na diet d/josé miguel ivf due to fluid over load daily bmp renal function is improving cpk's are improving c/w lasix agree witk K+ supplementg
[2018-06-27] MEDS: Tiotropium 18 mcg Cap For Inhalation INH SCH (21:12)
[2018-06-28 08:34] LABS: HEMOGLOBIN 12.1 g/dL (12.0-18.0); MEAN CELL VOLUME 102.3 fl (80.0-94.0); MEAN CORPUSCULAR HEMOGLOBIN 34.1 pg (27.0-31.0); MEAN CORPUSCULAR HGB CONC 33.3 g/dL (33.0-37.0); RBC 3.55 Mil/uL (4.40-5.90); WHITE BLOOD COUNT 5.9 K/uL (4.8-10.8)
[2018-06-28 08:57] LABS: ALB/GLOB RATIO 0.7 (1.0-2.1); ALBUMIN 3.1 g/dL (3.5-5.0); CALCIUM 8.8 mg/dL (8.4-10.2)
[2018-06-28] MEDS: Potassium Chloride 20 mEq ER Tab PO SCH (09:32)
[2018-06-28] MEDS: Pantoprazole 40 mg EC Tab PO SCH (09:32)
[2018-06-28] MEDS: Lidocaine 5% Patch TD SCH ×2 (09:33→22:24)
[2018-06-28] MEDS ORDERED: Potassium Chloride 20 mEq ER Tab PO ONE (12:10)
--- NOTE | 2018-06-28 14:27 | CP.PCM.PN ---
Subjective - Date & Time of Evaluation Date of Evaluation: 06/28/18 Time of Evaluation: 14:27 - Subjective Subjective: 3 yo HM with pmh/o hTn x 3 yrs, hyperlipidemia ,asthma, s/p rt lung surgery was admitted with cc/o b/l leg pains and crams, and back. pt was found to have elevated cpk's , and increased bun/s.cr. pt is not in acute distress, no cp, no sob, b/l leg swelling rt>left Objective - Vital Signs/Intake and Output Vital Signs (last 24 hours): Temp Pulse Resp BP Pulse Ox 98.0 F 69 20 154/73 H 95 06/28/18 08:20 06/28/18 09:32 06/28/18 08:20 06/28/18 09:34 06/28/18 08:20 - Medications Medications: Current Medications Albuterol (Ventolin Hfa 90 Mcg/Actuation (8 G)) 1 puff INH Q6 PRN PRN Reason: Shortness of Breath Aspirin (Ecotrin) 81 mg PO DAILY [facility] Last Admin: 06/28/18 09:32 Dose: 81 mg Carvedilol (Coreg) 12.5 mg PO DAILY [facility] Last Admin: 06/28/18 09:32 Dose: 12.5 mg Cyclobenzaprine HCl (Flexeril) 10 mg PO TID PRN PRN Reason: Muscle spasm Donepezil HCl (Aricept) 5 mg PO DAILY [facility] Last Admin: 06/28/18 09:32 Dose: 5 mg Ergocalciferol (Drisdol 50,000 Intl Units Cap) 1 cap PO QWK [facility] Folic Acid (Folic Acid) 1 mg PO DAILY [facility] Last Admin: 06/28/18 09:32 Dose: 1 mg Furosemide (Lasix) 40 mg IV DAILY [facility] Last Admin: 06/28/18 09:34 Dose: 40 mg Ketoconazole (Nizoral) 1 applic TOP DAILY [facility] Last Admin: 06/28/18 12:26 Dose: 1 applic Lidocaine (Lidoderm) 1 ea TD Q12 [facility] Last Admin: 06/28/18 09:33 Dose: 1 ea Loratadine (Claritin) 10 mg PO DAILY [facility] Last Admin: 06/28/18 09:33 Dose: 10 mg Pantoprazole Sodium (Protonix Ec Tab) 40 mg PO DAILY [facility] Last Admin: 06/28/18 09:32 Dose: 40 mg Potassium Chloride (K-Dur 20 Meq Er Tab) 40 meq PO DAILY [facility] Last Admin: 06/28/18 09:32 Dose: 40 meq Sodium Bicarbonate (Sodium Bicarbonate Tab) 650 mg PO Q8 [facility] Last Admin: 06/28/18 09:31 Dose: 650 mg Tiotropium [place] (Spiriva) 18 mcg INH HS [facility] Last Admin: 06/27/18 21:12 Dose: 18 mcg - Labs Labs: 06/28/18 06:20 06/28/18 06:20 PT 14.0 Seconds (9.8-13.1) H 06/22/18 13:20 INR 1.2 06/22/18 13:20 APTT 43.1 Seconds (25.6-37.1) H 06/22/18 13:20 - Constitutional Appears: Well, Non-toxic, No Acute Distress - Head Exam Head Exam: ATRAUMATIC, NORMAL INSPECTION, NORMOCEPHALIC - Eye Exam Eye Exam: EOMI, Normal appearance, PERRL Pupil Exam: NORMAL ACCOMODATION - ENT Exam ENT Exam: Mucous Membranes Moist - Respiratory Exam Respiratory Exam: Decreased Breath Sounds, NORMAL BREATHING PATTERN Additional comments: rt base decreased bs - Cardiovascular Exam Cardiovascular Exam: REGULAR RHYTHM, +S1 - GI/Abdominal Exam GI & Abdominal Exam: Soft, Normal Bowel Sounds - Rectal Exam Rectal Exam: Deferred - Extremities Exam Additional comments: b/l le swelling rt >left - Neurological Exam Neurological Exam: Alert, Awake, CN II-XII Intact, Oriented x3 - Skin Skin Exam: Normal Color, Warm Assessment and Plan - Assessment and Plan (Free Text) Assessment: 73 yo HM with pmh/o htn, hld, asthma, s/p rt lung surgery with b/l leg pain, cramps and elavted bun/cr, cpk's 1. SHARIFA most likely sec to ATN sec to rhabdo and/ or drugs, NSAIDS, ACEI 2. Rhabdo 3. Abnormal lft's sec to rhabdo 4. HTN 5. Hypokalemia has good uop c/w current anti htn meds, low na diet d/josé miguel ivf due to fluid over load daily bmp renal function is stable cpk's are improving c/w lasix agree witk K+ supplementg
[2018-06-28] MEDS: Tiotropium 18 mcg Cap For Inhalation INH SCH (22:24)
[2018-06-29 06:38] LABS: HEMOGLOBIN 11.5 g/dL (12.0-18.0); MEAN CELL VOLUME 101.4 fl (80.0-94.0); MEAN CORPUSCULAR HEMOGLOBIN 34.1 pg (27.0-31.0); MEAN CORPUSCULAR HGB CONC 33.7 g/dL (33.0-37.0); RBC 3.38 Mil/uL (4.40-5.90)
[2018-06-29 06:52] LABS: ALB/GLOB RATIO 0.8 (1.0-2.1); ALBUMIN 3.2 g/dL (3.5-5.0); CALCIUM 8.9 mg/dL (8.4-10.2)
[2018-06-29] MEDS: Lidocaine 5% Patch TD SCH ×2 (09:27→21:18)
[2018-06-29] MEDS: Potassium Chloride 20 mEq ER Tab PO SCH (09:30)
[2018-06-29] MEDS: Pantoprazole 40 mg EC Tab PO SCH (09:30)
--- NOTE | 2018-06-29 12:54 | CP.PCM.PN ---
Subjective - Date & Time of Evaluation Date of Evaluation: 06/29/18 Time of Evaluation: 12:53 - Subjective Subjective: pt denies any chest pain, less sob, + edema pf legs Rt >left Objective - Vital Signs/Intake and Output Vital Signs (last 24 hours): Temp Pulse Resp BP Pulse Ox 98.1 F 79 20 142/80 95 06/29/18 08:05 06/29/18 10:20 06/29/18 08:05 06/29/18 10:20 06/29/18 10:20 Intake and Output: 06/29/18 06/29/18 06:59 18:59 Intake Total 946 Output Total 1850 Balance -904 - Medications Medications: Current Medications Albuterol (Ventolin Hfa 90 Mcg/Actuation (8 G)) 1 puff INH Q6 PRN PRN Reason: Shortness of Breath Aspirin (Ecotrin) 81 mg PO DAILY [facility] Last Admin: 06/29/18 09:29 Dose: 81 mg Carvedilol (Coreg) 12.5 mg PO DAILY [facility] Last Admin: 06/29/18 09:31 Dose: 12.5 mg Cyclobenzaprine HCl (Flexeril) 10 mg PO TID PRN PRN Reason: Muscle spasm Last Admin: 06/29/18 09:30 Dose: 10 mg Donepezil HCl (Aricept) 5 mg PO DAILY [facility] Last Admin: 06/29/18 09:29 Dose: 5 mg Ergocalciferol (Drisdol 50,000 Intl Units Cap) 1 cap PO QWK [facility] Folic Acid (Folic Acid) 1 mg PO DAILY [facility] Last Admin: 06/29/18 09:29 Dose: 1 mg Ketoconazole (Nizoral) 1 applic TOP DAILY [facility] Last Admin: 06/29/18 09:32 Dose: 1 applic Lidocaine (Lidoderm) 1 ea TD Q12 [facility] Last Admin: 06/29/18 09:27 Dose: 1 ea Loratadine (Claritin) 10 mg PO DAILY [facility] Last Admin: 06/29/18 09:29 Dose: 10 mg Pantoprazole Sodium (Protonix Ec Tab) 40 mg PO DAILY [facility] Last Admin: 06/29/18 09:30 Dose: 40 mg Potassium Chloride (K-Dur 20 Meq Er Tab) 40 meq PO DAILY [facility] Last Admin: 06/29/18 09:30 Dose: 40 meq Sodium Bicarbonate (Sodium Bicarbonate Tab) 650 mg PO Q8 [facility] Last Admin: 06/29/18 09:30 Dose: 650 mg Tiotropium [place] (Spiriva) 18 mcg INH HS [facility] Last Admin: 06/28/18 22:24 Dose: 18 mcg - Labs Labs: 06/29/18 05:25 06/29/18 05:25 PT 14.0 Seconds (9.8-13.1) H 06/22/18 13:20 INR 1.2 06/22/18 13:20 APTT 43.1 Seconds (25.6-37.1) H 06/22/18 13:20 - Constitutional Appears: Well, Non-toxic, No Acute Distress - Head Exam Head Exam: ATRAUMATIC, NORMAL INSPECTION - Eye Exam Eye Exam: EOMI, Normal appearance Pupil Exam: NORMAL ACCOMODATION, PERRL - ENT Exam ENT Exam: Mucous Membranes Moist, Normal Exam - Neck Exam Neck Exam: Full ROM - Respiratory Exam Respiratory Exam: Decreased Breath Sounds, NORMAL BREATHING PATTERN Additional comments: decreased bs ar rt base+ - Cardiovascular Exam Cardiovascular Exam: REGULAR RHYTHM, +S1, +S2 - GI/Abdominal Exam GI & Abdominal Exam: Soft, Normal Bowel Sounds Additional comments: no hepato spleenomegaly - Rectal Exam Rectal Exam: Deferred - Neurological Exam Neurological Exam: Alert, Awake, CN II-XII Intact, Normal Gait - Psychiatric Exam Psychiatric exam: Normal Mood - Skin Skin Exam: Dry, Intact Assessment and Plan - Assessment and Plan (Free Text) Assessment: 73 yo HM with pmh/o htn, hld, asthma, s/p rt lung surgery with b/l leg pain, cramps and elavted bun/cr, cpk's 1. SHARIFA most likely sec to ATN sec to rhabdo and/ or drugs, NSAIDS, ACEI 2. Rhabdo 3. Abnormal lft's sec to rhabdo 4. HTN 5. Hypokalemia has good uop c/w current anti htn meds, low na diet cpk is improving daily bmp renal function is stable cpk's are improving lasix prn agree with K+ supplementg
[2018-06-29] MEDS: Sodium Chloride 0.9% 1,000 ML IV SCH ×2 (14:00→21:22)
--- NOTE | 2018-06-29 14:54 | RAD ---
Date of service: 06/29/2018 HISTORY: RLL consolidation and pleural effusion COMPARISON: 06/26/2018 two view chest. 06/26/2018 CT thorax TECHNIQUE: Chest PA and lateral FINDINGS: LUNGS: Improved aeration of the lungs. Persistent consolidative changes both lung bases right greater than left. Masslike density right upper lobe, a finding not confirmed to represent a mass on the recent CT scan. Atelectasis can assume this appearance as can fluid tracking in the fissure. PLEURA: Bilateral pleural effusions right larger than left. CARDIOVASCULAR: No aortic atherosclerotic calcification present. Normal cardiac size. No pulmonary vascular congestion. OSSEOUS STRUCTURES: No significant abnormalities. VISUALIZED UPPER ABDOMEN: Normal. OTHER FINDINGS: None. IMPRESSION: Persistent consolidative changes both lower lobes right greater than left so seen with bilateral pleural effusions right larger than left. Additional findings described in greater detail above.
[2018-06-29] MEDS ORDERED: Potassium Chloride 20 mEq ER Tab PO ONE (17:00)
[2018-06-29] MEDS: Tiotropium 18 mcg Cap For Inhalation INH SCH (21:18)
--- NOTE | 2018-06-29 22:09 | CP.PCM.CON ---
History of Present Illness - History of Present Illness History of Present Illness: Called to evaluate patient admitted for Rhabdo, with new Bibasilar infilltrates R > L. ROS;Dry cough; neg sputum, mild wheezing. Neg Heme. VSS Head: neg adeno. Pos ARIANE. Heart RRR, Ns1s2 neg m Lungs some crackles at bases. Abdo s, no pos bs Ext No C,C E. Neuro:GNF. X-ray CT SCan as aforementioned. Labs: see below: a/p Bibasilar PNA. Probable COPD. Cont Supp o2 for O2 sat > 90% Conf Albuterol and Atrovent. Start IV Abx to cover for nosocomials. Monitor WBC#, temp curve, and pancultures. Sputum analysis. PUD and DVT Px. Carlo Tirado M.D., [facility] [phone] Past Patient History - Past Medical History & Family History Past Medical History?: Yes - Past Social History Smoking Status: Former Smoker - CARDIAC Hx Cardiac Disorders: Yes Hx Hypercholesterolemia: Yes Hx Hypertension: Yes - PULMONARY Hx Respiratory Disorders: Yes Hx Asthma: Yes - NEUROLOGICAL Hx Neurological Disorder: No - HEENT Hx HEENT Problems: No - RENAL Hx Chronic Kidney Disease: No - ENDOCRINE/METABOLIC Hx Endocrine Disorders: No - HEMATOLOGICAL/ONCOLOGICAL Hx Blood Disorders: No - INTEGUMENTARY Hx Dermatological Problems: No - MUSCULOSKELETAL/RHEUMATOLOGICAL Hx Musculoskeletal Disorders: No Hx Falls: Yes - GASTROINTESTINAL Hx Gastrointestinal Disorders: No - GENITOURINARY/GYNECOLOGICAL Hx Genitourinary Disorders: No - PSYCHIATRIC Hx Psychophysiologic Disorder: No Hx Substance Use: No - SURGICAL HISTORY Hx Surgeries: Yes Other/Comment: Lung surgery 2004 (for infection). - ANESTHESIA Hx Anesthesia: Yes Hx Anesthesia Reactions: No Hx Malignant Hyperthermia: No Meds Allergies/Adverse Reactions: Allergies Allergy/AdvReac Type Severity Reaction Status Date / Time No Known Allergies Allergy Verified 01/04/18 04:39 - Medications Medications: Current Medications Albuterol (Ventolin Hfa 90 Mcg/Actuation (8 G)) 1 puff INH Q6 PRN PRN Reason: Shortness of Breath Aspirin (Ecotrin) 81 mg PO DAILY [facility] Last Admin: 06/29/18 09:29 Dose: 81 mg Carvedilol (Coreg) 12.5 mg PO DAILY [facility] Last Admin: 06/29/18 09:31 Dose: 12.5 mg Cyclobenzaprine HCl (Flexeril) 10 mg PO TID PRN PRN Reason: Muscle spasm Last Admin: 06/29/18 09:30 Dose: 10 mg Donepezil HCl (Aricept) 5 mg PO DAILY [facility] Last Admin: 06/29/18 09:29 Dose: 5 mg Ergocalciferol (Drisdol 50,000 Intl Units Cap) 1 cap PO QWK [facility] Folic Acid (Folic Acid) 1 mg PO DAILY [facility] Last Admin: 06/29/18 09:29 Dose: 1 mg Sodium Chloride (Sodium Chloride 0.9%) 1,000 mls @ 70 mls/hr IV .[id number] [facility] Stop: 06/30/18 13:13 Last Admin: 06/29/18 21:22 Dose: 70 mls/hr Ketoconazole (Nizoral) 1 applic TOP DAILY [facility] Last Admin: 06/29/18 09:32 Dose: 1 applic Lidocaine (Lidoderm) 1 ea TD Q12 [facility] Last Admin: 06/29/18 21:18 Dose: 1 ea Loratadine (Claritin) 10 mg PO DAILY [facility] Last Admin: 06/29/18 09:29 Dose: 10 mg Pantoprazole Sodium (Protonix Ec Tab) 40 mg PO DAILY [facility] Last Admin: 06/29/18 09:30 Dose: 40 mg Potassium Chloride (K-Dur 20 Meq Er Tab) 40 meq PO DAILY [facility] Last Admin: 06/29/18 09:30 Dose: 40 meq Sodium Bicarbonate (Sodium Bicarbonate Tab) 650 mg PO Q8 [facility] Last Admin: 06/29/18 17:34 Dose: 650 mg Tiotropium [place] (Spiriva) 18 mcg INH HS [facility] Last Admin: 06/29/18 21:18 Dose: 18 mcg Results - Vital Signs Recent Vital Signs: Last Vital Signs Temp 98.1 F 06/29/18 17:00 Pulse 71 06/29/18 17:00 Resp 20 06/29/18 17:00 BP 127/68 06/29/18 17:00 Pulse Ox 96 06/29/18 17:00 - Labs Result Diagrams: 06/29/18 05:25 06/29/18 05:25 Labs: Laboratory Results - last 24 hr 06/29/18 06/29/18 05:25 05:25 WBC 6.0 RBC 3.38 L Hgb 11.5 L Hct 34.3 L MCV 101.4 H MCH 34.1 H MCHC 33.7 RDW 15.0 H Plt Count 173 Sodium 138 Potassium 3.3 L Chloride 106 Carbon Dioxide 21 L Anion Gap 14 BUN 34 H Creatinine 2.7 H Est GFR ( Amer) 28 Est GFR (Non-Af Amer) 23 Random Glucose 108 Calcium 8.9 Total Bilirubin 2.3 H AST 204 H ALT 87 H Alkaline Phosphatase 68 Total Creatine Kinase 1196 H Total Protein 7.4 Albumin 3.2 L Globulin 4.2 H Albumin/Globulin Ratio 0.8 L
[2018-06-30] MEDS: Sodium Chloride 0.9% 1,000 ML IV SCH (04:00)
[2018-06-30] MEDS: Pantoprazole 40 mg EC Tab PO SCH (09:58)
[2018-06-30] MEDS: Potassium Chloride 20 mEq ER Tab PO SCH (09:59)
[2018-06-30] MEDS: Lidocaine 5% Patch TD SCH ×2 (10:00→22:25)
[2018-06-30 10:42] LABS: ALB/GLOB RATIO 0.8 (1.0-2.1); ALBUMIN 3.2 g/dL (3.5-5.0); CALCIUM 8.9 mg/dL (8.4-10.2)
[2018-06-30] MEDS ORDERED: Sodium Chloride 3% for Inhalation 4 ML VIAL.NEB IH PRN (10:47)
--- NOTE | 2018-06-30 10:49 | CP.PCM.PN ---
Subjective - Date & Time of Evaluation Date of Evaluation: 06/30/18 Time of Evaluation: 08:00 - Subjective Subjective: cough and infiltrates admitted for rhabdo r/o infection vs fluid overload rx ordered Objective - Vital Signs/Intake and Output Vital Signs (last 24 hours): Temp Pulse Resp BP Pulse Ox 98.1 F 69 18 144/71 94 L 06/30/18 08:36 06/30/18 09:57 06/30/18 08:36 06/30/18 09:57 06/30/18 08:36 Intake and Output: 06/30/18 06/30/18 06:59 18:59 Intake Total 1150 Output Total 840 Balance 310 - Medications Medications: Current Medications Albuterol (Ventolin Hfa 90 Mcg/Actuation (8 G)) 1 puff INH Q6 PRN PRN Reason: Shortness of Breath Aspirin (Ecotrin) 81 mg PO DAILY [facility] Last Admin: 06/30/18 09:58 Dose: 81 mg Carvedilol (Coreg) 12.5 mg PO DAILY [facility] Last Admin: 06/30/18 09:57 Dose: 12.5 mg Cyclobenzaprine HCl (Flexeril) 10 mg PO TID PRN PRN Reason: Muscle spasm Last Admin: 06/29/18 09:30 Dose: 10 mg Donepezil HCl (Aricept) 5 mg PO DAILY [facility] Last Admin: 06/30/18 09:59 Dose: 5 mg Ergocalciferol (Drisdol 50,000 Intl Units Cap) 1 cap PO QWK [facility] Folic Acid (Folic Acid) 1 mg PO DAILY [facility] Last Admin: 06/30/18 09:58 Dose: 1 mg Sodium Chloride (Sodium Chloride 0.9%) 1,000 mls @ 70 mls/hr IV .[id number] [facility] Stop: 06/30/18 13:13 Last Admin: 06/30/18 04:00 Dose: Not Given Piperacillin Sod/Tazobactam (Sod 2.25 gm/ Sodium Chloride) 100 mls @ 100 mls/hr IVPB Q8 [facility]; Protocol Ketoconazole (Nizoral) 1 applic TOP DAILY [facility] Last Admin: 06/30/18 10:02 Dose: 1 applic Lidocaine (Lidoderm) 1 ea TD Q12 [facility] Last Admin: 06/30/18 10:00 Dose: 1 ea Loratadine (Claritin) 10 mg PO DAILY [facility] Last Admin: 06/30/18 10:00 Dose: 10 mg Pantoprazole Sodium (Protonix Ec Tab) 40 mg PO DAILY [facility] Last Admin: 06/30/18 09:58 Dose: 40 mg Potassium Chloride (K-Dur 20 Meq Er Tab) 40 meq PO DAILY [facility] Last Admin: 06/30/18 09:59 Dose: 40 meq Sodium Bicarbonate (Sodium Bicarbonate Tab) 650 mg PO Q8 [facility] Last Admin: 06/30/18 09:57 Dose: 650 mg Tiotropium [place] (Spiriva) 18 mcg INH HS [facility] Last Admin: 06/29/18 21:18 Dose: 18 mcg - Labs Labs: 06/29/18 05:25 06/30/18 10:10 PT 14.0 Seconds (9.8-13.1) H 06/22/18 13:20 INR 1.2 06/22/18 13:20 APTT 43.1 Seconds (25.6-37.1) H 06/22/18 13:20 - Constitutional Appears: Non-toxic, Chronically Ill - Head Exam Head Exam: NORMOCEPHALIC - Eye Exam Eye Exam: absent: Scleral icterus - ENT Exam ENT Exam: Mucous Membranes Dry - Neck Exam Neck Exam: absent: Lymphadenopathy - Respiratory Exam Respiratory Exam: Decreased Breath Sounds, Prolonged Expiratory Phase, Rhonchi - Cardiovascular Exam Cardiovascular Exam: REGULAR RHYTHM - GI/Abdominal Exam GI & Abdominal Exam: Distended, Soft. absent: Tenderness, Organomegaly - Rectal Exam Rectal Exam: Deferred - Exam Exam: NORMAL INSPECTION - Extremities Exam Extremities Exam: absent: Calf Tenderness, Joint Swelling, Pedal Edema - Back Exam Back Exam: absent: CVA tenderness (L), CVA tenderness (R) - Neurological Exam Neurological Exam: Alert, Awake, Normal Gait, Oriented x3. absent: Motor Sensory Deficit - Psychiatric Exam Psychiatric exam: Normal Mood - Skin Skin Exam: Dry Assessment and Plan (1) Pneumonia Status: Acute (2) Sepsis Status: Acute (3) Renal insufficiency Status: Acute (4) Rhabdomyolysis Status: Acute - Assessment and Plan (Free Text) Assessment: cont iv antibiotics as ordered discussed with PMD
--- NOTE | 2018-06-30 11:39 | CP.PCM.PN ---
Subjective - Date & Time of Evaluation Date of Evaluation: 06/30/18 Time of Evaluation: 11:39 - Subjective Subjective: pt is oob to chair, not in acute distress, cpk's are improving Objective - Vital Signs/Intake and Output Vital Signs (last 24 hours): Temp Pulse Resp BP Pulse Ox 98.1 F 69 18 144/71 94 L 06/30/18 08:36 06/30/18 09:57 06/30/18 08:36 06/30/18 09:57 06/30/18 08:36 Intake and Output: 06/30/18 06/30/18 06:59 18:59 Intake Total 1150 Output Total 840 Balance 310 - Medications Medications: Current Medications Albuterol (Ventolin Hfa 90 Mcg/Actuation (8 G)) 1 puff INH Q6 PRN PRN Reason: Shortness of Breath Aspirin (Ecotrin) 81 mg PO DAILY [facility] Last Admin: 06/30/18 09:58 Dose: 81 mg Carvedilol (Coreg) 12.5 mg PO DAILY [facility] Last Admin: 06/30/18 09:57 Dose: 12.5 mg Cyclobenzaprine HCl (Flexeril) 10 mg PO TID PRN PRN Reason: Muscle spasm Last Admin: 06/29/18 09:30 Dose: 10 mg Donepezil HCl (Aricept) 5 mg PO DAILY [facility] Last Admin: 06/30/18 09:59 Dose: 5 mg Ergocalciferol (Drisdol 50,000 Intl Units Cap) 1 cap PO QWK [facility] Folic Acid (Folic Acid) 1 mg PO DAILY [facility] Last Admin: 06/30/18 09:58 Dose: 1 mg Sodium Chloride (Sodium Chloride 0.9%) 1,000 mls @ 70 mls/hr IV .[id number] [facility] Stop: 06/30/18 13:13 Last Admin: 06/30/18 04:00 Dose: Not Given Piperacillin Sod/Tazobactam (Sod 2.25 gm/ Sodium Chloride) 100 mls @ 100 mls/hr IVPB Q8 [facility]; Protocol Last Admin: 06/30/18 11:31 Dose: 100 mls/hr Ketoconazole (Nizoral) 1 applic TOP DAILY [facility] Last Admin: 06/30/18 10:02 Dose: 1 applic Lidocaine (Lidoderm) 1 ea TD Q12 [facility] Last Admin: 06/30/18 10:00 Dose: 1 ea Loratadine (Claritin) 10 mg PO DAILY [facility] Last Admin: 06/30/18 10:00 Dose: 10 mg Pantoprazole Sodium (Protonix Ec Tab) 40 mg PO DAILY [facility] Last Admin: 06/30/18 09:58 Dose: 40 mg Potassium Chloride (K-Dur 20 Meq Er Tab) 40 meq PO DAILY [facility] Last Admin: 06/30/18 09:59 Dose: 40 meq Sodium Bicarbonate (Sodium Bicarbonate Tab) 650 mg PO Q8 [facility] Last Admin: 06/30/18 09:57 Dose: 650 mg Tiotropium [place] (Spiriva) 18 mcg INH HS [facility] Last Admin: 06/29/18 21:18 Dose: 18 mcg - Labs Labs: 06/29/18 05:25 06/30/18 10:10 PT 14.0 Seconds (9.8-13.1) H 06/22/18 13:20 INR 1.2 06/22/18 13:20 APTT 43.1 Seconds (25.6-37.1) H 06/22/18 13:20 - Constitutional Appears: Well, Non-toxic, No Acute Distress - Head Exam Head Exam: ATRAUMATIC, NORMAL INSPECTION, NORMOCEPHALIC - Eye Exam Eye Exam: EOMI, Normal appearance, PERRL Pupil Exam: NORMAL ACCOMODATION - ENT Exam ENT Exam: Mucous Membranes Moist - Neck Exam Neck Exam: Full ROM - Respiratory Exam Respiratory Exam: Decreased Breath Sounds, NORMAL BREATHING PATTERN - Cardiovascular Exam Cardiovascular Exam: REGULAR RHYTHM, +S1, +S2 - GI/Abdominal Exam GI & Abdominal Exam: Soft, Normal Bowel Sounds - Rectal Exam Rectal Exam: Deferred - Extremities Exam Additional comments: 1+ edema - Neurological Exam Neurological Exam: Alert, Awake, CN II-XII Intact, Normal Gait, Oriented x3 - Psychiatric Exam Psychiatric exam: Normal Affect, Normal Mood - Skin Skin Exam: Normal Color, Warm Assessment and Plan - Assessment and Plan (Free Text) Assessment: 73 yo HM with pmh/o htn, hld, asthma, s/p rt lung surgery with b/l leg pain, cramps and elavted bun/cr, cpk's 1. SHARIFA most likely sec to ATN sec to rhabdo and/ or drugs, NSAIDS, ACEI 2. Rhabdo 3. Abnormal lft's sec to rhabdo 4. HTN 5. Hypokalemia 6. Pneumonia has good uop c/w current anti htn meds, low na diet cpk is improving daily bmp renal function is stable cpk's are improving lasix prn agree with K+ supplementg
[2018-06-30] MEDS: Tiotropium 18 mcg Cap For Inhalation INH SCH (22:24)
[2018-06-30] MEDS ORDERED: Azithromycin 500 MG in Sodium Chloride 0.9% 250 ML IVPB SCH (23:30)
[2018-07-01] MEDS ORDERED: Azithromycin 500 MG in Sodium Chloride 0.9% 250 ML IVPB SCH (00:45)
[2018-07-01 06:19] LABS: HEMOGLOBIN 11.6 g/dL (12.0-18.0); MEAN CELL VOLUME 101.6 fl (80.0-94.0); MEAN CORPUSCULAR HGB CONC 33.5 g/dL (33.0-37.0); RBC 3.42 Mil/uL (4.40-5.90); RED CELL DISTRIBUTION WIDTH 15.3 % (11.5-14.5); WHITE BLOOD COUNT 5.6 K/uL (4.8-10.8)
[2018-07-01 06:23] LABS: ALB/GLOB RATIO 0.8 (1.0-2.1); ALBUMIN 3.3 g/dL (3.5-5.0)
[2018-07-01 08:47] VITALS: BP 143/71; PULSE 69; RESP 20; TEMP 97.9; O2SAT 96
[2018-07-01] MEDS: Potassium Chloride 20 mEq ER Tab PO SCH (10:47)
[2018-07-01] MEDS: Lidocaine 5% Patch TD SCH (10:49)
[2018-07-01] MEDS: Pantoprazole 40 mg EC Tab PO SCH (11:10)
--- NOTE | 2018-07-01 11:18 | RAD ---
Date of service: 07/01/2018 PROCEDURE: CHEST RADIOGRAPH, 1 VIEW HISTORY: pneumonia, b/l pleural effusions COMPARISON: 06/29/2018 FINDINGS: LUNGS: Shallow lung volumes. And/or below the main pulmonary artery is an ill-defined low-density opacity probably relating to the right posterior pleural based cavitary mass which has been referenced in the past with calcifications. It is unknown if this was aspergillosis or other fungal pathology. Apparently patient had a prior to 2013 video-assisted thoracoscopy. The results of that are not known Opacity at the right lung base along with pleural effusion and/or thickening appears increased since 06/29/2018 PLEURA: No pneumothorax right inferolateral pleural effusion or pleural thickening suggested-the opacity at the right lung base appears slightly increased compared to 06/29/2018 CARDIOVASCULAR: No aortic atherosclerotic calcification present. The thoracic aorta and also the main pulmonary artery appear prominent on this chest x-ray. This may in part be due to projection and slight rotation. At minimum thoracic aorta is unfolded. No pulmonary venous congestion appreciated Mild cardiomegaly OSSEOUS STRUCTURES: No significant abnormalities. VISUALIZED UPPER ABDOMEN: Normal. OTHER FINDINGS: None. IMPRESSION: Long-standing history of a posterior pleural based cavitary mass this is compatible with what has been previously noted over the right yolande and infra hilar location on chest x-ray Interval increased right inferolateral pleural parenchymal opacity. Right pleural effusion with right pleural thickening here inferred. Interval increasing effusion and/or thickening and/or atelectatic changes here compatible with this. Concomitant interval infiltrate here also needs to be considered.
--- NOTE | 2018-07-01 13:08 | CP.PCM.PN ---
Subjective - Date & Time of Evaluation Date of Evaluation: 07/01/18 Time of Evaluation: 08:00 - Subjective Subjective: improving possible d/c on oral rx Objective - Vital Signs/Intake and Output Vital Signs (last 24 hours): Temp Pulse Resp BP Pulse Ox 97.9 F 69 20 143/71 96 07/01/18 08:47 07/01/18 10:45 07/01/18 08:47 07/01/18 10:47 07/01/18 08:47 Intake and Output: 07/01/18 07/01/18 06:59 18:59 Intake Total 690 Output Total 400 Balance 290 - Medications Medications: Current Medications Albuterol (Ventolin Hfa 90 Mcg/Actuation (8 G)) 1 puff INH Q6 PRN PRN Reason: Shortness of Breath Aspirin (Ecotrin) 81 mg PO DAILY [facility] Last Admin: 07/01/18 10:46 Dose: 81 mg Carvedilol (Coreg) 12.5 mg PO DAILY [facility] Last Admin: 07/01/18 10:45 Dose: 12.5 mg Cyclobenzaprine HCl (Flexeril) 10 mg PO TID PRN PRN Reason: Muscle spasm Last Admin: 06/29/18 09:30 Dose: 10 mg Donepezil HCl (Aricept) 5 mg PO DAILY [facility] Last Admin: 07/01/18 10:45 Dose: 5 mg Ergocalciferol (Drisdol 50,000 Intl Units Cap) 1 cap PO QWK [facility] Folic Acid (Folic Acid) 1 mg PO DAILY [facility] Last Admin: 07/01/18 10:47 Dose: 1 mg Furosemide (Lasix) 40 mg IVP BID [facility] Last Admin: 07/01/18 10:47 Dose: 40 mg Piperacillin Sod/Tazobactam (Sod 2.25 gm/ Sodium Chloride) 100 mls @ 100 mls/hr IVPB Q8 [facility]; Protocol Last Admin: 07/01/18 11:17 Dose: 100 mls/hr Azithromycin 500 mg/ Sodium (Chloride) 250 mls @ 250 mls/hr IVPB DAILY@2300 [facility]; Protocol Last Admin: 07/01/18 01:09 Dose: 250 mls/hr Ketoconazole (Nizoral) 1 applic TOP DAILY [facility] Last Admin: 07/01/18 11:09 Dose: 1 applic Lidocaine (Lidoderm) 1 ea TD Q12 [facility] Last Admin: 07/01/18 10:49 Dose: 1 ea Loratadine (Claritin) 10 mg PO DAILY [facility] Last Admin: 07/01/18 10:45 Dose: 10 mg Pantoprazole Sodium (Protonix Ec Tab) 40 mg PO DAILY [facility] Last Admin: 07/01/18 11:10 Dose: 40 mg Potassium Chloride (K-Dur 20 Meq Er Tab) 40 meq PO DAILY [facility] Last Admin: 07/01/18 10:47 Dose: 40 meq Sodium Bicarbonate (Sodium Bicarbonate Tab) 650 mg PO Q8 [facility] Last Admin: 07/01/18 11:11 Dose: 650 mg Tiotropium [place] (Spiriva) 18 mcg INH HS [facility] Last Admin: 06/30/18 22:24 Dose: 18 mcg - Labs Labs: 07/01/18 05:50 07/01/18 05:50 PT 14.0 Seconds (9.8-13.1) H 06/22/18 13:20 INR 1.2 06/22/18 13:20 APTT 43.1 Seconds (25.6-37.1) H 06/22/18 13:20 - Constitutional Appears: Non-toxic, Chronically Ill - Head Exam Head Exam: NORMOCEPHALIC - Eye Exam Eye Exam: absent: Scleral icterus - ENT Exam ENT Exam: Mucous Membranes Dry - Neck Exam Neck Exam: absent: Lymphadenopathy - Respiratory Exam Respiratory Exam: Decreased Breath Sounds - Cardiovascular Exam Cardiovascular Exam: REGULAR RHYTHM - GI/Abdominal Exam GI & Abdominal Exam: Distended - Rectal Exam Rectal Exam: Deferred Assessment and Plan - Assessment and Plan (Free Text) Plan: cont iv then po follow up CXR 1 week
--- NOTE | 2018-07-01 13:36 | CP.PCM.PCO ---
Assessment/Plan - Assessment/Plan Assessment (Free Text): Pt stable, in no distress. Seen and cleared d/c home by Dr. Olson. Per Dr. 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 Rx given to patient and to advise pt to recover fully x 3 months before taking any trips. Per Dr. Delgado, patient can be d/c'd on Levaquin x 7 days. Patient cleared by Dr. Vizcaino for d/c home and f/u in 2 weeks. Patient to f/u with Dr. Olson in 1 week for evaluation and medication adjustment.
--- NOTE | 2018-07-01 14:48 | CP.PCM.DIS ---
Provider - Provider Date of Admission: 06/22/18 19:29 Attending physician: Ovidio Washburn MD Time Spent in preparation of Discharge (in minutes): 38 Diagnosis - Discharge Diagnosis (1) Rhabdomyolysis Status: Acute (2) Renal insufficiency Status: Acute (3) Pneumonia Status: Acute (4) Hypercholesterolemia Status: Acute Hospital Course - Lab Results Lab Results: Micro Results 06/30/18 11:27 Blood Blood Culture - Preliminary NO GROWTH AFTER 24 HOURS 06/22/18 15:15 Urine Urine Culture - Final No Growth (<1,000 CFU/ML) Most Recent Lab Values WBC 5.6 K/uL (4.8-10.8) 07/01/18 05:50 RBC 3.42 Mil/uL (4.40-5.90) L 07/01/18 05:50 Hgb 11.6 g/dL (12.0-18.0) L 07/01/18 05:50 Hct 34.7 % (35.0-51.0) L 07/01/18 05:50 MCV 101.6 fl (80.0-94.0) H 07/01/18 05:50 MCH 34.0 pg (27.0-31.0) H 07/01/18 05:50 MCHC 33.5 g/dL (33.0-37.0) 07/01/18 05:50 RDW 15.3 % (11.5-14.5) H 07/01/18 05:50 Plt Count 175 K/uL (130-400) 07/01/18 05:50 MPV 10.4 fl (7.2-11.7) 06/22/18 12:10 Neut % (Auto) 63.6 % (50.0-75.0) 06/22/18 12:10 Lymph % (Auto) 18.1 % (20.0-40.0) L 06/22/18 12:10 [place] % (Auto) 14.8 % (0.0-10.0) H 06/22/18 12:10 Eos % (Auto) 2.8 % (0.0-4.0) 06/22/18 12:10 Baso % (Auto) 0.7 % (0.0-2.0) 06/22/18 12:10 Neut # (Auto) 4.6 K/uL (1.8-7.0) 06/22/18 12:10 Lymph # (Auto) 1.3 K/uL (1.0-4.3) 06/22/18 12:10 [place] # (Auto) 1.1 K/uL (0.0-0.8) H 06/22/18 12:10 Eos # (Auto) 0.2 K/uL (0.0-0.7) 06/22/18 12:10 Baso # (Auto) 0.0 K/uL (0.0-0.2) 06/22/18 12:10 PT 14.0 Seconds (9.8-13.1) H 06/22/18 13:20 INR 1.2 06/22/18 13:20 APTT 43.1 Seconds (25.6-37.1) H 06/22/18 13:20 Sodium 139 mmol/l (132-148) 07/01/18 05:50 Potassium 3.6 MMOL/L (3.6-5.0) 07/01/18 05:50 Chloride 104 mmol/L (98-107) 07/01/18 05:50 Carbon Dioxide 23 mmol/L (22-30) 07/01/18 05:50 Anion Gap 16 (10-20) 07/01/18 05:50 BUN 35 mg/dl (9-20) H 07/01/18 05:50 Creatinine 2.8 mg/dl (0.8-1.5) H 07/01/18 05:50 Est GFR ( Amer) 27 07/01/18 05:50 Est GFR (Non-Af Amer) 22 07/01/18 05:50 Random Glucose 109 mg/dL (75-110) 07/01/18 05:50 Calcium 9.0 mg/dL (8.4-10.2) 07/01/18 05:50 Phosphorus 3.7 mg/dl (2.5-4.5) 06/30/18 10:10 Magnesium 1.8 MG/DL (1.6-2.3) 06/30/18 10:10 Total Bilirubin 2.3 mg/dl (0.2-1.3) H 07/01/18 05:50 AST 144 U/L (17-59) H 07/01/18 05:50 ALT 81 U/L (21-72) H 07/01/18 05:50 Alkaline Phosphatase 58 U/L (38-126) 07/01/18 05:50 Total Creatine Kinase 578 U/L (55-170) H 06/30/18 10:10 NT-Pro-B Natriuret Pep 1230 pg/ml (0-900) H 06/30/18 11:33 Total Protein 7.7 G/DL (6.3-8.2) 07/01/18 05:50 Albumin 3.3 g/dL (3.5-5.0) L 07/01/18 05:50 Globulin 4.3 gm/dL (2.2-3.9) H 07/01/18 05:50 Albumin/Globulin Ratio 0.8 (1.0-2.1) L 07/01/18 05:50 Triglycerides 115 mg/DL (0-149) 06/25/18 06:05 Cholesterol 106 mg/dL (0-199) 06/25/18 06:05 LDL Cholesterol Direct 74 mg/dL (0-129) 06/25/18 06:05 HDL Cholesterol 22 MG/DL (30-70) L 06/25/18 06:05 Procalcitonin 0.29 NG/ML (0.19-0.49) 06/30/18 12:36 Urine Color Opal (YELLOW) 06/22/18 15:15 Urine Clarity Turbid (Clear) 06/22/18 15:15 Urine pH 5.0 (5.0-8.0) 06/22/18 15:15 Ur Specific [place] 1.021 (1.003-1.030) 06/22/18 15:15 Urine Protein 100 mg/dL (NEGATIVE) 06/22/18 15:15 Urine Glucose (UA) Neg mg/dL (Normal) 06/22/18 15:15 Urine Ketones Negative mg/dL (NEGATIVE) 06/22/18 15:15 Urine Blood Large (NEGATIVE) 06/22/18 15:15 Urine Nitrate Negative (NEGATIVE) 06/22/18 15:15 Urine Bilirubin Negative (NEGATIVE) 06/22/18 15:15 Urine Urobilinogen 2.0 mg/dL (0.2-1.0) 06/22/18 15:15 Ur Leukocyte Esterase Neg Kostas/uL (Negative) 06/22/18 15:15 Urine Microscopic WBC 1 /hpf (0-5) 06/22/18 15:15 Ur Squamous Epith Cells 4 /hpf (0-5) 06/22/18 15:15 Amorphous Sediment Occ /ul (<OCC) H 06/22/18 15:15 Urine Bacteria Occ (<OCC) H 06/22/18 15:15 Hepatitis A IgM Ab Negative (NEGATIVE) 06/23/18 11:32 Hep Bs Antigen Negative (NEGATIVE) 06/23/18 11:32 Hep B Core IgM Ab Negative (NEGATIVE) 06/23/18 11:32 Hepatitis C Antibody Negative (NEGATIVE) 06/23/18 11:32 Mycoplasma pneumon IgM Positive (NEGATIVE) H 06/30/18 11:33 - Hospital Course Hospital Course: 73 y/o M with a PMHx of HTN, HLD and asthma was admitted with rhabdomyolysis and SHARIFA on CKD. Questionable pneumonia on CXR and CT. Patient evaluated by Nephro, Cardio and Pulmonology during admission. Patient condition improved during stay. Per Dr. 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 Blood and urine cx negative. Patient stable and cleared for discharge. Per ID complete 7 days of levaquin PO, Rx given. Instructions to f/u with PMD and Nephro in 2 weeks. Discharge Exam - Head Exam Head Exam: NORMAL INSPECTION - Eye Exam Eye Exam: EOMI - Respiratory Exam Respiratory Exam: Clear to PA & Lateral, NORMAL BREATHING PATTERN - Cardiovascular Exam Cardiovascular Exam: REGULAR RHYTHM, +S1, +S2 - GI/Abdominal Exam GI & Abdominal Exam: Normal Bowel Sounds, Soft. absent: Distended, Tenderness - Neurological Exam Neurological exam: Alert, CN II-XII Intact, Oriented x3 - Skin Skin Exam: Dry, Warm Discharge Plan - Discharge Medications Prescriptions: levoFLOXacin [Levaquin] 500 mg PO DAILY #7 tab - Follow Up Plan Condition: STABLE Disposition: HOME/ ROUTINE Instructions: Rhabdomyolysis (DC) Additional Instructions: hacer khang con hand primario dentro de [address] Cooper dentro de 1 semana [facility] nurses [phone] Referrals: Edna Vizcaino MD [Staff Provider] - Joaquim Delgado MD [Staff Provider] - Ishan Chopra MD [Staff Provider] -
--- NOTE | 2018-07-05 01:45 | CP.PCM.PN ---
Subjective - Date & Time of Evaluation Date of Evaluation: 06/24/18 Time of Evaluation: 11:00 - Subjective Subjective: Noted decrease in CPK values Has less cough has minimal tenderness on both lower extremities Has no fever. Objective - Vital Signs/Intake and Output Vital Signs (last 24 hours): Temp Pulse Resp BP Pulse Ox 97.9 F 69 20 143/71 96 07/01/18 08:47 07/01/18 10:45 07/01/18 08:47 07/01/18 10:47 07/01/18 08:47 - Labs Labs: 07/01/18 05:50 07/01/18 05:50 PT 14.0 Seconds (9.8-13.1) H 06/22/18 13:20 INR 1.2 06/22/18 13:20 APTT 43.1 Seconds (25.6-37.1) H 06/22/18 13:20 - Head Exam Head Exam: NORMAL INSPECTION - Eye Exam Eye Exam: Normal appearance - ENT Exam ENT Exam: Mucous Membranes Moist - Respiratory Exam Respiratory Exam: Clear to Ausculation Bilateral - Cardiovascular Exam Cardiovascular Exam: REGULAR RHYTHM - GI/Abdominal Exam GI & Abdominal Exam: Normal Bowel Sounds - Neurological Exam Neurological Exam: Awake Assessment and Plan (1) Anemia Status: Acute (2) Lung mass Status: Acute (3) Pneumonia Status: Acute (4) Renal insufficiency Status: Acute (5) Rhabdomyolysis Status: Acute - Assessment and Plan (Free Text) Plan: Cpn tmeds hydrate IV antibiotics start phsy therapy
--- NOTE | 2018-07-05 01:49 | CP.PCM.PN ---
Subjective - Date & Time of Evaluation Date of Evaluation: 06/27/18 Time of Evaluation: 11:00 - Subjective Subjective: Patient feels a lot better Has no chest pain or SOB afberile. Objective - Vital Signs/Intake and Output Vital Signs (last 24 hours): Temp Pulse Resp BP Pulse Ox 97.9 F 69 20 143/71 96 07/01/18 08:47 07/01/18 10:45 07/01/18 08:47 07/01/18 10:47 07/01/18 08:47 - Labs Labs: 07/01/18 05:50 07/01/18 05:50 PT 14.0 Seconds (9.8-13.1) H 06/22/18 13:20 INR 1.2 06/22/18 13:20 APTT 43.1 Seconds (25.6-37.1) H 06/22/18 13:20 - Head Exam Head Exam: NORMAL INSPECTION - Eye Exam Eye Exam: Normal appearance - Respiratory Exam Respiratory Exam: NORMAL BREATHING PATTERN - Cardiovascular Exam Cardiovascular Exam: REGULAR RHYTHM - GI/Abdominal Exam GI & Abdominal Exam: Normal Bowel Sounds - Neurological Exam Neurological Exam: Awake, Oriented x3 Assessment and Plan (1) Anemia Status: Acute (2) Lung mass Status: Acute (3) Pneumonia Status: Acute (4) Renal insufficiency Status: Acute (5) Rhabdomyolysis Status: Acute - Assessment and Plan (Free Text) Plan: Con tmeds Cont iv antibiotics and resp treatment. Cont tx follow up with pulmonary The lung mass has been documneted many times in the past.
--- NOTE | 2018-07-05 01:51 | CP.PCM.PN ---
Subjective - Date & Time of Evaluation Date of Evaluation: 06/28/18 Time of Evaluation: 11:25 - Subjective Subjective: Patient remains stable Has no cough Has no fever Still feels weak, Objective - Vital Signs/Intake and Output Vital Signs (last 24 hours): Temp Pulse Resp BP Pulse Ox 97.9 F 69 20 143/71 96 07/01/18 08:47 07/01/18 10:45 07/01/18 08:47 07/01/18 10:47 07/01/18 08:47 - Labs Labs: 07/01/18 05:50 07/01/18 05:50 PT 14.0 Seconds (9.8-13.1) H 06/22/18 13:20 INR 1.2 06/22/18 13:20 APTT 43.1 Seconds (25.6-37.1) H 06/22/18 13:20 - Head Exam Head Exam: NORMAL INSPECTION - Eye Exam Eye Exam: Normal appearance - Respiratory Exam Respiratory Exam: Decreased Breath Sounds - Cardiovascular Exam Cardiovascular Exam: REGULAR RHYTHM - GI/Abdominal Exam GI & Abdominal Exam: Normal Bowel Sounds Assessment and Plan (1) Anemia Status: Acute (2) Lung mass Status: Acute (3) Pneumonia Status: Acute (4) Renal insufficiency Status: Acute (5) Rhabdomyolysis Status: Acute - Assessment and Plan (Free Text) Plan: Cont meds Cont tx Cont PT Discharge plans for sub acute vs home.
--- NOTE | 2018-07-05 01:52 | CP.PCM.PN ---
Subjective - Date & Time of Evaluation Date of Evaluation: 06/29/18 Time of Evaluation: 11:10 - Subjective Subjective: Patient remains well has no fever for the past 48 hours Has no chest pain has minimal cough. Objective - Vital Signs/Intake and Output Vital Signs (last 24 hours): Temp Pulse Resp BP Pulse Ox 97.9 F 69 20 143/71 96 07/01/18 08:47 07/01/18 10:45 07/01/18 08:47 07/01/18 10:47 07/01/18 08:47 - Labs Labs: 07/01/18 05:50 07/01/18 05:50 PT 14.0 Seconds (9.8-13.1) H 06/22/18 13:20 INR 1.2 06/22/18 13:20 APTT 43.1 Seconds (25.6-37.1) H 06/22/18 13:20 - Head Exam Head Exam: NORMAL INSPECTION - Eye Exam Eye Exam: Normal appearance - Respiratory Exam Respiratory Exam: Chest Wall Tenderness, Decreased Breath Sounds, Clear to Ausculation Bilateral - GI/Abdominal Exam GI & Abdominal Exam: Normal Bowel Sounds Assessment and Plan (1) Anemia Status: Acute (2) Lung mass Status: Acute (3) Pneumonia Status: Acute (4) Renal insufficiency Status: Acute (5) Rhabdomyolysis Status: Acute
--- NOTE | 2018-07-05 01:55 | CP.PCM.PN ---
Subjective - Date & Time of Evaluation Date of Evaluation: 06/30/18 Time of Evaluation: 11:30 - Subjective Subjective: Patient remains well Has no chest pain or SOB' afebrile Objective - Vital Signs/Intake and Output Vital Signs (last 24 hours): Temp Pulse Resp BP Pulse Ox 97.9 F 69 20 143/71 96 07/01/18 08:47 07/01/18 10:45 07/01/18 08:47 07/01/18 10:47 07/01/18 08:47 - Labs Labs: 07/01/18 05:50 07/01/18 05:50 PT 14.0 Seconds (9.8-13.1) H 06/22/18 13:20 INR 1.2 06/22/18 13:20 APTT 43.1 Seconds (25.6-37.1) H 06/22/18 13:20 - Head Exam Head Exam: NORMAL INSPECTION - Eye Exam Eye Exam: Normal appearance - ENT Exam ENT Exam: Mucous Membranes Moist - Cardiovascular Exam Cardiovascular Exam: Tachycardia - GI/Abdominal Exam GI & Abdominal Exam: Normal Bowel Sounds - Psychiatric Exam Psychiatric exam: Normal Mood Assessment and Plan (1) Anemia Status: Acute (2) Lung mass Status: Acute (3) Pneumonia Status: Acute (4) Renal insufficiency Status: Acute (5) Rhabdomyolysis Status: Acute - Assessment and Plan (Free Text) Plan: Cont meds Cont iv antibiotics follow up with ID Discharge plans
== END 2018-07-01 14:50 | disposition home or self-care (01) | DRG 557 ==
LOC: H.ER 10:36 → H.ERHOLD 19:29 → H.MEDSURG1 06-23 20:47
PROVIDERS: ADMIT Family Medicine; ATTEND Family Medicine
DX: M62.82 Rhabdomyolysis (principal); N17.0 Acute kidney failure with tubular necrosis; J18.9 Pneumonia, unspecified organism; J44.0 Chronic obstructive pulmonary disease with (acute) lower respiratory infection; Z87.891 Personal history of nicotine dependence; E78.5 Hyperlipidemia, unspecified; E78.00 Pure hypercholesterolemia, unspecified; J45.909 Unspecified asthma, uncomplicated; E87.6 Hypokalemia; E87.70 Fluid overload, unspecified; T39.395A Adverse effect of other nonsteroidal anti-inflammatory drugs [NSAID], initial encounter; I12.9 Hypertensive chronic kidney disease with stage 1 through stage 4 chronic kidney disease, or unspecified chronic kidney disease; N18.9 Chronic kidney disease, unspecified; D64.9 Anemia, unspecified; R91.8 Other nonspecific abnormal finding of lung field; J98.4 Other disorders of lung

== ENCOUNTER 2018-07-03 08:57 | Inpatient (IN) | payer MEDICARE, MEDICAID ==
[2018-07-03 09:02] VITALS: BMI 23.0
[2018-07-03] MEDS ORDERED: Sodium Chloride 0.9% 1,000 ML IV STA ×2 (09:18→11:19)
--- NOTE | 2018-07-03 09:26 | ED PDOC ---
HPI: General Adult Time Seen by Provider: 07/03/18 09:24 Chief Complaint (Nursing): Weakness/Neurological Deficit Chief Complaint (Provider): dizziness History Per: Patient (73 y/o male recent d/c from hospital for rhabhdomylosis/pneumonia 2 days ago d/c with levaquin x 7 days here with weakness/dizziness today. Noted hypotensive today. Denies any other complaints. States he took his levaquin and lisinopril today. No chest pain/abdominal pain/vomiting/diarrhea.) Past Medical History Reviewed: Historical Data, Nursing Documentation, Vital Signs Vital Signs: Last Vital Signs Temp 97 F L 07/03/18 09:02 Pulse 63 07/03/18 09:02 Resp 18 07/03/18 09:02 BP 67/37 L 07/03/18 09:02 Pulse Ox 96 07/03/18 09:02 - Medical History PMH: Asthma, HTN, Hypercholesterolemia, Hyperlipidemia Denies: Chronic Kidney Disease - Family History Family History: States: No Known Family Hx, Hypertension - Home Medications Home Medications: Ambulatory Orders Medication Instructions Recorded Albuterol HFA [Ventolin HFA 90 1 puff INH Q6 PRN 06/23/18 mcg/actuation (8 g)] Aspirin [Adult Low Dose Aspirin EC] 81 mg PO DAILY 06/23/18 Carvedilol [Coreg] 12.5 mg PO DAILY 06/23/18 Cetirizine HCl [All Day Allergy 10 mg PO DAILY 06/23/18 Relief] Cyclobenzaprine [Flexeril] 10 mg PO TID PRN 06/23/18 Donepezil [Aricept] 5 mg PO DAILY 06/23/18 Ergocalciferol (Vitamin D2) 1 cap PO QWK 06/23/18 [Drisdol] Febuxostat [Uloric] 80 mg PO DAILY 06/23/18 Folic Acid 1 mg PO DAILY 06/23/18 Ibuprofen [Motrin Tab] 800 mg PO Q6 PRN 06/23/18 Ketoconazole 2% Cr [Nizoral] 1 appl TOP DAILY 06/23/18 Lidocaine 5% [Lidoderm] 1 patch TOP Q12 06/23/18 Lisinopril [Zestril] 10 mg PO DAILY 06/23/18 Omeprazole 40 mg PO DAILY 06/23/18 Tiotropium [Spiriva] 1 cap INH HS 06/23/18 levoFLOXacin [Levaquin] 500 mg PO DAILY #7 tab 07/01/18 - Allergies Allergies/Adverse Reactions: Allergies Allergy/AdvReac Type Severity Reaction Status Date / Time No Known Allergies Allergy Verified 07/03/18 09:18 Review of Systems ROS Statement: Except As Marked, All Systems Reviewed And Found Negative Neurological: Positive for: Dizziness Physical Exam - Reviewed Nursing Documentation Reviewed: Yes Vital Signs Reviewed: Yes - Physical Exam Appears: Positive for: Well, Non-toxic, No Acute Distress Head Exam: Positive for: ATRAUMATIC, NORMAL INSPECTION, NORMOCEPHALIC Skin: Positive for: Normal Color, Warm, DRY Eye Exam: Positive for: EOMI, Normal appearance, PERRL ENT: Positive for: Normal ENT Inspection Neck: Positive for: Normal, Painless ROM Cardiovascular/Chest: Positive for: Regular Rate, Rhythm Respiratory: Positive for: CNT, Normal Breath Sounds Gastrointestinal/Abdominal: Positive for: Normal Exam, Soft Back: Positive for: Normal Inspection Extremity: Positive for: Normal ROM Neurologic/Psych: Positive for: Alert, Oriented - Laboratory Results Result Diagrams: 07/03/18 09:34 07/03/18 09:34 - ECG O2 Sat by Pulse Oximetry: 96 - Progress ED Course And Treament: EKG: NSR 61 bpm; no ectopy no acute changes NS 1 liter iv ordered. Repeat BP 87/30. repeat BP after 250 cc 109 systolic. Lactate 3.1 Zosyn 3.375gm iv x 1 dose VAncomycin 1 gm iv x 1 dose d/w dr. Olson cxr: IMPRESSION: Right parahilar mass unchanged. Patchy opacity at right base common nonspecific. Small right pleural effusion. Repeat BP 114/60 Disposition - Clinical Impression Clinical Impression: Pneumonia, Sepsis - Patient ED Disposition Is Patient to be Admitted: Yes - Disposition Disposition Time: 10:41 Condition: FAIR Instructions: Pneumonia in Adults, Sepsis in Adults - Pt Status Changed To: Hospital Disposition Of: Inpatient - Admit Certification Admit to Inpatient:: After my assessment, the patient will require hospitalization for at least two midnights. This is because of the severity of symptoms shown, intensity of services needed, and/or the medical risk in this patient being treated as an outpatient.
[2018-07-03 09:48] LABS: INR 1.5; PROTHROMBIN TIME 17.2 Seconds (9.8-13.1)
[2018-07-03 09:51] LABS: PARTIAL THROMBOPLASTIN TIME 44.6 Seconds (25.6-37.1)
[2018-07-03 09:54] LABS: BASO # 0.1 K/uL (0.0-0.2); BASO % 0.9 % (0.0-2.0); EOS # 0.2 K/uL (0.0-0.7); EOS % 2.8 % (0.0-4.0); HEMOGLOBIN 10.8 g/dL (12.0-18.0); LYMPH # 1.6 K/uL (1.0-4.3); LYMPH % 27.3 % (20.0-40.0); MEAN CELL VOLUME 101.8 fl (80.0-94.0); MEAN CORPUSCULAR HEMOGLOBIN 34.5 pg (27.0-31.0); MEAN CORPUSCULAR HGB CONC 33.9 g/dL (33.0-37.0); MEAN PLATELET VOLUME 9.2 fl (7.2-11.7); MONO % 16.1 % (0.0-10.0); NEUT # 3.1 K/uL (1.8-7.0); NEUT % 52.9 % (50.0-75.0); NRBC % 0.1 % (0.0-0.0); RBC 3.13 Mil/uL (4.40-5.90); RED CELL DISTRIBUTION WIDTH 15.2 % (11.5-14.5); WHITE BLOOD COUNT 5.9 K/uL (4.8-10.8)
--- NOTE | 2018-07-03 10:00 | RAD ---
Date of service: 07/03/2018 HISTORY: h/o pneumonia COMPARISON: 07/01/2018 FINDINGS: LUNGS: Right parahilar ovoid mass unchanged. This corresponds to a cavitary mass identified on CT examination of 06/26/2018. Minimal patchy opacity at right base, nonspecific.. PLEURA: Small right pleural effusion. No left pleural effusion. No pneumothorax. CARDIOVASCULAR: No aortic atherosclerotic calcification present. Normal cardiac size. No pulmonary vascular congestion. OSSEOUS STRUCTURES: No significant abnormalities. VISUALIZED UPPER ABDOMEN: Normal. OTHER FINDINGS: None. IMPRESSION: Right parahilar mass unchanged. Patchy opacity at right base common nonspecific. Small right pleural effusion.
[2018-07-03 10:08] LABS: VENOUS BLOOD GAS BASE EXCESS -2.9 mmol/L (0.0-2.0); VENOUS BLOOD GAS PCO2 41 mmHg (40-60); VENOUS BLOOD GAS PO2 40 mm/Hg (30-55); VENOUS BLOOD PH 7.35 (7.32-7.43)
[2018-07-03] MEDS ORDERED: Piperacillin/Tazobact 3.375 GM in Sodium Chloride 0.9% 100 ML IVPB STA (10:14)
[2018-07-03 10:17] LABS: B-TYPE NATRIURETIC PEPTIDE 1350 pg/ml (0-900)
[2018-07-03 10:22] LABS: ALB/GLOB RATIO 0.8 (1.0-2.1); ALBUMIN 3.3 g/dL (3.5-5.0); ALT/SGPT 74 U/L (21-72); AST/SGOT 111 U/L (17-59); BLOOD UREA NITROGEN 34 mg/dl (9-20); CALCIUM 9.1 mg/dL (8.4-10.2); GFR NON-AFRICAN AMERICAN 22
[2018-07-03 11:13] LABS: URINE BILIRUBIN NEGATIVE (NEGATIVE); URINE BLOOD MODERATE (NEGATIVE); URINE CLARITY SLIGHTY-CLOUDY (Clear); URINE COLOR AMBER (YELLOW); URINE GLUCOSE (UA) NEG (Normal); URINE LEUKOCYTE ESTERASE NEG Leu/uL (Negative); URINE PROTEIN NEGATIVE (NEGATIVE)
--- NOTE | 2018-07-03 13:50 | CP.PCM.HP ---
<Esau Saunders - Last Filed: 07/03/18 14:54> History of Present Illness - History of Present Illness History of Present Illness: 73 y/o M with a PMHx of HTN, HLD and asthma present to the ED via EMS c/o weakness/dizziness today. Recently d/c from hospital for rhabhdomylosis/pneumonia 2 days ago. Reports bilateral lower leg weakness and fatigue. In ED was noted hypotensive. Denies any other complaints. States he took his levaquin and lisinopril today. Denies fever, chills, cough or sob, no chest or abdominal pain/vomiting/diarrhea. No urinary symptoms. He was d/c with levaquin PO x 7 days. PMD: Dr Olson Present on Admission - Present on Admission Any Indicators Present on Admission: No Review of Systems - Review of Systems All systems: reviewed and no additional remarkable complaints except (HPI) Past Patient History - Infectious Disease Hx of Infectious Diseases: None - Past Medical History & Family History Past Medical History?: Yes - Past Social History Smoking Status: Former Smoker - CARDIAC Hx Hypercholesterolemia: Yes Hx Hypertension: Yes - PULMONARY Hx Asthma: Yes - NEUROLOGICAL Hx Neurological Disorder: No - HEENT Hx HEENT Problems: No - RENAL Hx Chronic Kidney Disease: No - ENDOCRINE/METABOLIC Hx Endocrine Disorders: No - HEMATOLOGICAL/ONCOLOGICAL Hx Blood Disorders: No - INTEGUMENTARY Hx Dermatological Problems: No - MUSCULOSKELETAL/RHEUMATOLOGICAL Hx Musculoskeletal Disorders: No Hx Falls: Yes - GASTROINTESTINAL Hx Gastrointestinal Disorders: No - GENITOURINARY/GYNECOLOGICAL Hx Genitourinary Disorders: No - PSYCHIATRIC Hx Psychophysiologic Disorder: No Hx Substance Use: No - SURGICAL HISTORY Hx Surgeries: Yes Other/Comment: Lung surgery 2004 (for infection). - ANESTHESIA Hx Anesthesia: Yes Hx Anesthesia Reactions: No Hx Malignant Hyperthermia: No Meds Allergies/Adverse Reactions: Allergies Allergy/AdvReac Type Severity Reaction Status Date / Time No Known Allergies Allergy Verified 07/03/18 09:18 Physical Exam - Constitutional Appears: No Acute Distress - Head Exam Head Exam: NORMAL INSPECTION - Respiratory Exam Respiratory Exam: Rales (R base), NORMAL BREATHING PATTERN - Cardiovascular Exam Cardiovascular Exam: REGULAR RHYTHM, +S1, +S2. absent: Tachycardia - GI/Abdominal Exam GI & Abdominal Exam: Normal Bowel Sounds, Soft. absent: Distended, Tenderness - Extremities Exam Extremities exam: Negative for: pedal edema - Neurological Exam Neurological exam: Alert, CN II-XII Intact, Oriented x3 - Skin Skin Exam: Dry, Warm Results - Vital Signs Recent Vital Signs: Last Vital Signs Temp 97.5 F L 07/03/18 09:10 Pulse 62 07/03/18 09:10 Resp 16 07/03/18 09:10 BP 84/46 L 07/03/18 09:10 Pulse Ox 96 07/03/18 10:45 - Labs Result Diagrams: 07/03/18 09:34 07/03/18 09:34 Labs: Laboratory Results - last 24 hr 07/03/18 07/03/18 07/03/18 09:00 09:34 09:34 WBC 5.9 RBC 3.13 L Hgb 10.8 L Hct 31.8 L MCV 101.8 H MCH 34.5 H MCHC 33.9 RDW 15.2 H Plt Count 178 MPV 9.2 Neut % (Auto) 52.9 Lymph % (Auto) 27.3 [place] % (Auto) 16.1 H Eos % (Auto) 2.8 Baso % (Auto) 0.9 Neut # (Auto) 3.1 Lymph # (Auto) 1.6 [place] # (Auto) 1.0 H Eos # (Auto) 0.2 Baso # (Auto) 0.1 PT INR APTT pO2 VBG pH VBG pCO2 VBG HCO3 VBG Total CO2 VBG O2 Sat (Calc) VBG Base Excess VBG Potassium Glucose Lactate FiO2 Blood Gas Comments Crit Value Called To Crit Value Called By Crit Value Read Back Blood Gas Notified Time Sodium 139 Potassium 3.5 L Chloride 103 Carbon Dioxide 23 Anion Gap 17 BUN 34 H Creatinine 2.8 H Est GFR ( Amer) 27 Est GFR (Non-Af Amer) 22 POC Glucose (mg/dL) 114 H Random Glucose 135 H Calcium 9.1 Total Bilirubin 1.9 H AST 111 H D ALT 74 H Alkaline Phosphatase 50 Total Creatine Kinase 137 Troponin I < 0.0120 NT-Pro-B Natriuret Pep 1350 H Total Protein 7.5 Albumin 3.3 L Globulin 4.2 H Albumin/Globulin Ratio 0.8 L Venous Blood Potassium Urine Color Urine Clarity Urine pH Ur Specific [place] Urine Protein Urine Glucose (UA) Urine Ketones Urine Blood Urine Nitrate Urine Bilirubin Urine Urobilinogen Ur Leukocyte Esterase 07/03/18 07/03/18 07/03/18 09:34 10:02 10:55 WBC RBC Hgb Hct MCV MCH MCHC RDW Plt Count MPV Neut % (Auto) Lymph % (Auto) [place] % (Auto) Eos % (Auto) Baso % (Auto) Neut # (Auto) Lymph # (Auto) [place] # (Auto) Eos # (Auto) Baso # (Auto) PT 17.2 H INR 1.5 APTT 44.6 H pO2 40 VBG pH 7.35 VBG pCO2 41 VBG HCO3 22.0 VBG Total CO2 23.9 VBG O2 Sat (Calc) 77.7 H VBG Base Excess -2.9 L VBG Potassium 3.6 Glucose 138 H Lactate 3.1 H FiO2 21.0 Blood Gas Comments Lac=3.1 Crit Value Called To hailey Bardales Crit Value Called By 22 Crit Value Read Back Y Blood Gas Notified Time 1008 Sodium 137.0 Potassium Chloride 99.0 Carbon Dioxide Anion Gap BUN Creatinine Est GFR ( Amer) Est GFR (Non-Af Amer) POC Glucose (mg/dL) Random Glucose Calcium Total Bilirubin AST ALT Alkaline Phosphatase Total Creatine Kinase Troponin I NT-Pro-B Natriuret Pep Total Protein Albumin Globulin Albumin/Globulin Ratio Venous Blood Potassium 3.6 Urine Color Opal Urine Clarity Slighty-cloudy Urine pH 6.0 Ur Specific [place] 1.016 Urine Protein Negative Urine Glucose (UA) Neg Urine Ketones Negative Urine Blood Moderate Urine Nitrate Negative Urine Bilirubin Negative Urine Urobilinogen 4.0 Ur Leukocyte Esterase Neg Assessment & Plan - Assessment and Plan (Free Text) Assessment: 73 y/o M with a PMHx of HTN, HLD and asthma admitted for evaluation and management of pneumonia, likely CAP. Patient recently discharged 2 days ago, was previously admitted with rhabdomyolisis Plan: - Admit to Tele - Gentle IV Fluids - afebrile - labs reviewed - CXR: unchanged R pahiliar mass, patchy opacityat R base, small R pleural effusion - Hold BP meds for now due to hypotension - Continue Levaquin PO - other home meds resumed - Continue management as ordered. Case discussed with Dr Olson <Jos Olson - Last Filed: 07/04/18 22:13> Results - Vital Signs Recent Vital Signs: Last Vital Signs Temp 98.3 F 07/04/18 19:36 Pulse 70 07/04/18 19:36 Resp 18 07/04/18 19:36 BP 148/68 07/04/18 19:36 Pulse Ox 95 07/04/18 19:36 - Labs Result Diagrams: 07/04/18 04:45 07/04/18 04:45 Labs: Laboratory Results - last 24 hr 07/04/18 07/04/18 04:45 04:45 WBC 6.4 RBC 3.10 L Hgb 10.8 L Hct 31.5 L MCV 101.6 H MCH 34.8 H MCHC 34.2 RDW 15.0 H Plt Count 159 MPV 8.9 Neut % (Auto) 61.0 Lymph % (Auto) 20.4 [place] % (Auto) 14.2 H Eos % (Auto) 3.8 Baso % (Auto) 0.6 Neut # (Auto) 3.9 Lymph # (Auto) 1.3 [place] # (Auto) 0.9 H Eos # (Auto) 0.2 Baso # (Auto) 0.0 Sodium 140 Potassium 3.7 Chloride 106 Carbon Dioxide 23 Anion Gap 15 BUN 29 H Creatinine 2.6 H Est GFR ( Amer) 30 Est GFR (Non-Af Amer) 24 Random Glucose 109 Calcium 8.4 Total Bilirubin 2.1 H AST 94 H ALT 66 Alkaline Phosphatase 50 Total Creatine Kinase 94 Total Protein 7.3 Albumin 3.1 L Globulin 4.2 H Albumin/Globulin Ratio 0.7 L Assessment & Plan - Assessment and Plan (Free Text) Plan: I was present during evaluation and discussed with Dr Saunders re plans of care and mgt Jos Olson M.D.
[2018-07-03] MEDS ORDERED: Albuterol HFA 90 mcg/actuation (8 g) INH PRN (13:58)
[2018-07-03] MEDS: Tiotropium 18 mcg Cap For Inhalation INH SCH (21:59)
[2018-07-04 05:35] LABS: BASO % 0.6 % (0.0-2.0); EOS # 0.2 K/uL (0.0-0.7); EOS % 3.8 % (0.0-4.0); HEMOGLOBIN 10.8 g/dL (12.0-18.0); LYMPH # 1.3 K/uL (1.0-4.3); LYMPH % 20.4 % (20.0-40.0); MEAN CELL VOLUME 101.6 fl (80.0-94.0); MEAN CORPUSCULAR HEMOGLOBIN 34.8 pg (27.0-31.0); MEAN CORPUSCULAR HGB CONC 34.2 g/dL (33.0-37.0); MEAN PLATELET VOLUME 8.9 fl (7.2-11.7); MONO # 0.9 K/uL (0.0-0.8); MONO % 14.2 % (0.0-10.0); NEUT # 3.9 K/uL (1.8-7.0); NRBC % 0.1 % (0.0-0.0); RBC 3.1 Mil/uL (4.40-5.90); WHITE BLOOD COUNT 6.4 K/uL (4.8-10.8)
[2018-07-04 05:43] LABS: ALB/GLOB RATIO 0.7 (1.0-2.1); ALBUMIN 3.1 g/dL (3.5-5.0); CALCIUM 8.4 mg/dL (8.4-10.2)
[2018-07-04] MEDS: Enoxaparin 30 mg Syringe SC SCH (09:52)
[2018-07-04] MEDS: Pantoprazole 40 mg EC Tab PO SCH (09:52)
[2018-07-04] MEDS: levoFLOXacin 500 MG TAB PO SCH (09:52)
[2018-07-04] MEDS: Tiotropium 18 mcg Cap For Inhalation INH SCH (22:33)
--- NOTE | 2018-07-04 22:55 | CP.PCM.PN ---
Subjective - Date & Time of Evaluation Date of Evaluation: 07/04/18 Time of Evaluation: 16:15 - Subjective Subjective: Patient feels a lot better BP has been stable Not on any BP meds No chest pain or SOB. Objective - Vital Signs/Intake and Output Vital Signs (last 24 hours): Temp Pulse Resp BP Pulse Ox 98.3 F 70 18 148/68 95 07/04/18 19:36 07/04/18 19:36 07/04/18 19:36 07/04/18 19:36 07/04/18 19:36 - Medications Medications: Current Medications Acetaminophen (Tylenol 325mg Tab) 650 mg PO Q6 PRN PRN Reason: Fever >100.4 F Albuterol (Ventolin Hfa 90 Mcg/Actuation (8 G)) 1 puff INH Q6 PRN PRN Reason: Shortness of Breath Aspirin (Ecotrin) 81 mg PO DAILY [facility] Last Admin: 07/04/18 09:52 Dose: 81 mg Enoxaparin Sodium (Lovenox) 30 mg SC DAILY [facility]; Protocol Last Admin: 07/04/18 09:52 Dose: 30 mg Levofloxacin (Levaquin) 500 mg PO DAILY [facility]; Protocol Last Admin: 07/04/18 09:52 Dose: 500 mg Pantoprazole Sodium (Protonix Ec Tab) 40 mg PO DAILY [facility] Last Admin: 07/04/18 09:52 Dose: 40 mg Tiotropium [place] (Spiriva) 18 mcg INH [facility] Last Admin: 07/04/18 22:33 Dose: 18 mcg - Labs Labs: 07/04/18 04:45 07/04/18 04:45 PT 17.2 Seconds (9.8-13.1) H 07/03/18 09:34 INR 1.5 07/03/18 09:34 APTT 44.6 Seconds (25.6-37.1) H 07/03/18 09:34 - Head Exam Head Exam: NORMAL INSPECTION - Eye Exam Eye Exam: Normal appearance - ENT Exam ENT Exam: Mucous Membranes Moist - Respiratory Exam Respiratory Exam: Clear to Ausculation Bilateral - GI/Abdominal Exam GI & Abdominal Exam: Normal Bowel Sounds - Neurological Exam Neurological Exam: Awake Assessment and Plan (1) Hypotension Status: Acute (2) Anemia Status: Acute (3) Lung mass Status: Acute - Assessment and Plan (Free Text) Plan: Cont meds start phys therapy Cont tx Monitor BP Hold on all BP meds Cont meds subacute rehab eval.
[2018-07-05] MEDS: levoFLOXacin 500 MG TAB PO SCH (11:19)
[2018-07-05] MEDS: Enoxaparin 30 mg Syringe SC SCH (11:20)
[2018-07-05] MEDS: Pantoprazole 40 mg EC Tab PO SCH (11:20)
[2018-07-05] MEDS: Tiotropium 18 mcg Cap For Inhalation INH SCH (21:40)
--- NOTE | 2018-07-06 01:21 | CP.PCM.PN ---
Subjective - Date & Time of Evaluation Date of Evaluation: 07/05/18 Time of Evaluation: 17:00 - Subjective Subjective: patient is feeling a lot better Noted some increase in BP he was previously on carvedilol 12.5 bid and lisinopril 10 daily but Dc'd when he came in with hypotension review of ECHO done this month showed EF 55 to 60 has no dizziness no chest pain or SOB. Objective - Vital Signs/Intake and Output Vital Signs (last 24 hours): Temp Pulse Resp BP Pulse Ox 97.0 F L 74 18 147/69 95 07/05/18 19:41 07/05/18 21:00 07/05/18 19:41 07/05/18 19:41 07/05/18 19:41 - Medications Medications: Current Medications Acetaminophen (Tylenol 325mg Tab) 650 mg PO Q6 PRN PRN Reason: Fever >100.4 F Albuterol (Ventolin Hfa 90 Mcg/Actuation (8 G)) 1 puff INH Q6 PRN PRN Reason: Shortness of Breath Aspirin (Ecotrin) 81 mg PO DAILY [facility] Last Admin: 07/05/18 11:19 Dose: 81 mg Enoxaparin Sodium (Lovenox) 30 mg SC DAILY [facility]; Protocol Last Admin: 07/05/18 11:20 Dose: 30 mg Levofloxacin (Levaquin) 500 mg PO DAILY [facility]; Protocol Last Admin: 07/05/18 11:19 Dose: 500 mg Pantoprazole Sodium (Protonix Ec Tab) 40 mg PO DAILY [facility] Last Admin: 07/05/18 11:20 Dose: 40 mg Tiotropium [place] (Spiriva) 18 mcg INH HS [facility] Last Admin: 07/05/18 21:40 Dose: 18 mcg - Labs Labs: 07/04/18 04:45 07/04/18 04:45 PT 17.2 Seconds (9.8-13.1) H 07/03/18 09:34 INR 1.5 07/03/18 09:34 APTT 44.6 Seconds (25.6-37.1) H 07/03/18 09:34 - Head Exam Head Exam: NORMAL INSPECTION - ENT Exam ENT Exam: Mucous Membranes Moist - Respiratory Exam Respiratory Exam: Clear to Ausculation Bilateral - Cardiovascular Exam Cardiovascular Exam: REGULAR RHYTHM - GI/Abdominal Exam GI & Abdominal Exam: Normal Bowel Sounds - Neurological Exam Neurological Exam: Awake Assessment and Plan (1) Hypotension Status: Acute (2) Anemia Status: Acute (3) Lung mass Status: Acute (4) CKD (chronic kidney disease) stage 4, GFR 15-29 ml/min Status: Acute - Assessment and Plan (Free Text) Plan: Cont meds hydrate start amlodipine 5 mg daily start phys therapy in am subacute rehab eval
[2018-07-06] MEDS: levoFLOXacin 500 MG TAB PO SCH (08:31)
[2018-07-06] MEDS: Pantoprazole 40 mg EC Tab PO SCH (08:32)
[2018-07-06] MEDS: Enoxaparin 30 mg Syringe SC SCH (08:32)
--- NOTE | 2018-07-06 18:25 | CP.PCM.CON ---
History of Present Illness - History of Present Illness History of Present Illness: I came to evaluate patient for consult but he is off the floor for MRI Past Patient History - Infectious Disease Hx of Infectious Diseases: None - Past Medical History & Family History Past Medical History?: Yes - Past Social History Smoking Status: Former Smoker - CARDIAC Hx Hypercholesterolemia: Yes Hx Hypertension: Yes - PULMONARY Hx Asthma: Yes - NEUROLOGICAL Hx Neurological Disorder: No - HEENT Hx HEENT Problems: No - RENAL Hx Chronic Kidney Disease: No - ENDOCRINE/METABOLIC Hx Endocrine Disorders: No - HEMATOLOGICAL/ONCOLOGICAL Hx Blood Disorders: No - INTEGUMENTARY Hx Dermatological Problems: No - MUSCULOSKELETAL/RHEUMATOLOGICAL Hx Musculoskeletal Disorders: No Hx Falls: Yes - GASTROINTESTINAL Hx Gastrointestinal Disorders: No - GENITOURINARY/GYNECOLOGICAL Hx Genitourinary Disorders: No - PSYCHIATRIC Hx Psychophysiologic Disorder: No Hx Substance Use: No - SURGICAL HISTORY Hx Surgeries: Yes Other/Comment: Lung surgery 2004 (for infection). - ANESTHESIA Hx Anesthesia: Yes Hx Anesthesia Reactions: No Hx Malignant Hyperthermia: No Meds Allergies/Adverse Reactions: Allergies Allergy/AdvReac Type Severity Reaction Status Date / Time No Known Allergies Allergy Verified 07/03/18 09:18 - Medications Medications: Current Medications Acetaminophen (Tylenol 325mg Tab) 650 mg PO Q6 PRN PRN Reason: Fever >100.4 F Albuterol (Ventolin Hfa 90 Mcg/Actuation (8 G)) 1 puff INH Q6 PRN PRN Reason: Shortness of Breath Amlodipine Besylate (Norvasc) 5 mg PO DAILY [facility] Last Admin: 07/06/18 08:32 Dose: 5 mg Aspirin (Ecotrin) 81 mg PO DAILY [facility] Last Admin: 07/06/18 08:31 Dose: 81 mg Enoxaparin Sodium (Lovenox) 30 mg SC DAILY [facility]; Protocol Last Admin: 07/06/18 08:32 Dose: 30 mg Levofloxacin (Levaquin) 500 mg PO DAILY [facility]; Protocol Last Admin: 07/06/18 08:31 Dose: 500 mg Pantoprazole Sodium (Protonix Ec Tab) 40 mg PO DAILY [facility] Last Admin: 07/06/18 08:32 Dose: 40 mg Tiotropium [place] (Spiriva) 18 mcg INH HS [facility] Last Admin: 07/05/18 21:40 Dose: 18 mcg Results - Vital Signs Recent Vital Signs: Last Vital Signs Temp 97.8 F 07/06/18 16:09 Pulse 70 07/06/18 16:09 Resp 18 07/06/18 16:09 BP 150/72 07/06/18 16:09 Pulse Ox 96 07/06/18 16:09 - Labs Result Diagrams: 07/04/18 04:45 07/04/18 04:45
--- NOTE | 2018-07-06 18:35 | MRI ---
Date of service: 07/06/2018 PROCEDURE: MRI BRAIN WITHOUT CONTRAST HISTORY: R/o bleed, stroke COMPARISON: Comparison is made with the previous CT dated 01/04/2018 TECHNIQUE: Multiplanar, multisequence MR images of the brain were obtained without intravenous contrast enhancement. FINDINGS: HEMORRHAGE: None DWI: No evidence of an acute or early subacute infarction. BRAIN PARENCHYMA: No mass effect or edema. Moderate atrophy and volume loss noted. Mild to moderate white matter changes are noted also suggestive of chronic microvascular ischemic disease. VENTRICLES: Unremarkable. No hydrocephalus. CRANIUM: Unremarkable. ORBITS: Grossly unremarkable. PARANASAL SINUSES/MASTOIDS: Clear VASCULAR SYSTEM: Skull base flow voids intact. OTHER FINDINGS: None. IMPRESSION: There is no evidence of acute infarction. No MRI evidence of acute intracranial hemorrhage. Volume loss and white matter changes suggestive of chronic microvascular ischemic disease.
[2018-07-06] MEDS: Tiotropium 18 mcg Cap For Inhalation INH SCH (21:22)
[2018-07-07] MEDS: Pantoprazole 40 mg EC Tab PO SCH (08:16)
[2018-07-07] MEDS: Enoxaparin 30 mg Syringe SC SCH (08:16)
[2018-07-07] MEDS: levoFLOXacin 500 MG TAB PO SCH (08:16)
--- NOTE | 2018-07-07 12:41 | CP.PCM.PN ---
Subjective - Date & Time of Evaluation Date of Evaluation: 07/07/18 Time of Evaluation: 12:40 - Subjective Subjective: Patient seen and examined this morning at bedside, doing better, no overnight events, afebrile, working on PT Objective - Vital Signs/Intake and Output Vital Signs (last 24 hours): Temp Pulse Resp BP Pulse Ox 97.8 F 75 20 137/67 96 07/07/18 09:00 07/07/18 09:00 07/07/18 09:00 07/07/18 09:00 07/07/18 09:00 - Medications Medications: Current Medications Acetaminophen (Tylenol 325mg Tab) 650 mg PO Q6 PRN PRN Reason: Fever >100.4 F Albuterol (Ventolin Hfa 90 Mcg/Actuation (8 G)) 1 puff INH Q6 PRN PRN Reason: Shortness of Breath Amlodipine Besylate (Norvasc) 5 mg PO DAILY [facility] Last Admin: 07/07/18 08:16 Dose: 5 mg Aspirin (Ecotrin) 81 mg PO DAILY [facility] Last Admin: 07/07/18 08:16 Dose: 81 mg Levofloxacin (Levaquin) 500 mg PO DAILY [facility]; Protocol Last Admin: 07/07/18 08:16 Dose: 500 mg Pantoprazole Sodium (Protonix Ec Tab) 40 mg PO DAILY [facility] Last Admin: 07/07/18 08:16 Dose: 40 mg Tiotropium [place] (Spiriva) 18 mcg INH HS [facility] Last Admin: 07/06/18 21:22 Dose: 18 mcg - Labs Labs: 07/04/18 04:45 07/04/18 04:45 PT 17.2 Seconds (9.8-13.1) H 07/03/18 09:34 INR 1.5 07/03/18 09:34 APTT 44.6 Seconds (25.6-37.1) H 07/03/18 09:34 - Constitutional Appears: No Acute Distress - ENT Exam ENT Exam: Mucous Membranes Moist - Respiratory Exam Respiratory Exam: Clear to Ausculation Bilateral, NORMAL BREATHING PATTERN - Cardiovascular Exam Cardiovascular Exam: REGULAR RHYTHM. absent: Tachycardia - GI/Abdominal Exam GI & Abdominal Exam: Soft, Normal Bowel Sounds. absent: Distended, Tenderness - Extremities Exam Extremities Exam: absent: Pedal Edema - Neurological Exam Neurological Exam: Alert, Awake, Oriented x3 - Skin Skin Exam: Dry, Warm Assessment and Plan - Assessment and Plan (Free Text) Assessment: 73 y/o M with a PMHx of HTN, HLD and asthma admitted for evaluation and management of pneumonia, likely CAP. Plan: - doing better - labs reviewed - continue BP meds - Continue Levaquin - planning to d/c tomorrow with PT home services thorough [facility] - Continue management as ordered. Case seen and examined with Dr Garrettuez
--- NOTE | 2018-07-07 21:58 | CP.PCM.CON ---
History of Present Illness - History of Present Illness History of Present Illness: ASKED TO SEE PT BY DR DOUGHERTY FOR CARDIOLOGY COVERAGE. 73 YO MALE ADMITTED WITH HYPOTENSION AND LH X SEVERAL DAYS. PT STATES HIS LH RESOLVED YESTERDAY. HE DENIES CP, PALP, SOB, SYNCOPE OR NEAR SYNCOPE. PER RN ORTHOSTATIC VITALS PERFORMED TODAY WERE POSITIVE. RECENTLY ADMITTED FOR PNA AND RHABDO. CT CHEST SHOWS CAVITARY LESION AND EFFUSIONS EARLIER THIS MONTH. LE DOPPLERS NEGATIVE. ECHO NML EF MILD TO MOD MR AND TR. Review of Systems - Review of Systems Systems not reviewed;Unavailable: Language Barrier Past Patient History - Infectious Disease Hx of Infectious Diseases: None - Past Medical History & Family History Past Medical History?: Yes - Past Social History Smoking Status: Former Smoker Chewing Tobacco Use: No Cigar Use: No Alcohol: None Drugs: Denies - CARDIAC Hx Hypercholesterolemia: Yes Hx Hypertension: Yes - PULMONARY Hx Asthma: Yes - NEUROLOGICAL Hx Neurological Disorder: No - HEENT Hx HEENT Problems: No - RENAL Hx Chronic Kidney Disease: No - ENDOCRINE/METABOLIC Hx Endocrine Disorders: No - HEMATOLOGICAL/ONCOLOGICAL Hx Blood Disorders: No - INTEGUMENTARY Hx Dermatological Problems: No - MUSCULOSKELETAL/RHEUMATOLOGICAL Hx Musculoskeletal Disorders: No Hx Falls: Yes - GASTROINTESTINAL Hx Gastrointestinal Disorders: No - GENITOURINARY/GYNECOLOGICAL Hx Genitourinary Disorders: No - PSYCHIATRIC Hx Psychophysiologic Disorder: No Hx Substance Use: No - SURGICAL HISTORY Hx Surgeries: Yes Other/Comment: Lung surgery 2004 (for infection). - ANESTHESIA Hx Anesthesia: Yes Hx Anesthesia Reactions: No Hx Malignant Hyperthermia: No Meds Allergies/Adverse Reactions: Allergies Allergy/AdvReac Type Severity Reaction Status Date / Time No Known Allergies Allergy Verified 07/03/18 09:18 - Medications Medications: Current Medications Acetaminophen (Tylenol 325mg Tab) 650 mg PO Q6 PRN PRN Reason: Fever >100.4 F Albuterol (Ventolin Hfa 90 Mcg/Actuation (8 G)) 1 puff INH Q6 PRN PRN Reason: Shortness of Breath Amlodipine Besylate (Norvasc) 5 mg PO DAILY [facility] Last Admin: 07/07/18 08:16 Dose: 5 mg Aspirin (Ecotrin) 81 mg PO DAILY [facility] Last Admin: 07/07/18 08:16 Dose: 81 mg Levofloxacin (Levaquin) 500 mg PO DAILY [facility]; Protocol Last Admin: 07/07/18 08:16 Dose: 500 mg Pantoprazole Sodium (Protonix Ec Tab) 40 mg PO DAILY [facility] Last Admin: 07/07/18 08:16 Dose: 40 mg Tiotropium [place] (Spiriva) 18 mcg INH HS [facility] Last Admin: 07/06/18 21:22 Dose: 18 mcg Physical Exam - Constitutional Appears: Non-toxic - Head Exam Head Exam: ATRAUMATIC, NORMAL INSPECTION, NORMOCEPHALIC - Eye Exam Eye Exam: EOMI, Normal appearance, PERRL. absent: Conjunctival injection, Nystagmus, Periorbital swelling, Periorbital tenderness, Scleral icterus Pupil Exam: NORMAL ACCOMODATION, PERRL. absent: Fixed, Irregular, Miosis, Mydri atic, Unequal - ENT Exam ENT Exam: Mucous Membranes Moist, Normal Exam. absent: Mucous Membranes Dry, Normal External Ear Exam, Normal Oropharynx, TM's Normal Bilaterally - Neck Exam Neck exam: Positive for: Normal Inspection. Negative for: Full Rom, Lymphadenopathy, Meningismus, Tenderness, Thyromegaly - Respiratory Exam Respiratory Exam: Decreased Breath Sounds, Rhonchi. absent: Accessory Muscle Use, Chest Wall Tenderness, Clear to Auscultation Bilateral, Prolonged Expirato ry Phase, Rales, Wheezes, Respiratory Distress, Stridor, NORMAL BREATHING PATTERN - Cardiovascular Exam Cardiovascular Exam: REGULAR RHYTHM, +S1, +S2, Systolic Murmur. absent: Bradycardia, Tachycardia, Clicks, Diastolic murmur, Gallop, Irregular Rhythm, JVD, RRR, Rubs, +S4 - GI/Abdominal Exam GI & Abdominal Exam: Normal Bowel Sounds, Soft. absent: Bruit, Diminished Bowel Sounds, Distended, Firm, Guarding, Hernia, Hyperactive Bowel Sounds, Hypoactive Bowel Sounds, Mass, Organomegaly, Pulsatile Mass, Rebound, Rigid, Tenderness - Rectal Exam Rectal Exam: Deferred - Extremities Exam Extremities exam: Positive for: normal inspection, pedal pulses present. Negative for: calf tenderness, full ROM, joint swelling, normal capillary refill, pedal edema, tenderness - Back Exam Back exam: NORMAL INSPECTION. absent: CVA tenderness (L), CVA tenderness (R), FULL ROM, muscle spasm, paraspinal tenderness, rash noted, tenderness, vertebral tenderness - Neurological Exam Neurological exam: Alert, CN II-XII Intact, Oriented x3, Reflexes Normal - Psychiatric Exam Psychiatric exam: Normal Affect, Normal Mood - Skin Skin Exam: Dry, Intact, Normal Color, Warm Results - Vital Signs Recent Vital Signs: Last Vital Signs Temp 98.1 F 07/07/18 17:00 Pulse 80 07/07/18 17:00 Resp 18 07/07/18 17:00 BP 163/70 H 07/07/18 16:51 Pulse Ox 95 07/07/18 17:00 - Labs Result Diagrams: 07/04/18 04:45 07/04/18 04:45 Assessment & Plan (1) Dizziness Status: Acute (2) HTN (hypertension), benign Status: Chronic (3) Hypotension Status: Resolved (4) Lung mass Status: Chronic (5) Pneumonia Status: Acute (6) Hypercholesterolemia Status: Acute (7) Renal insufficiency Status: Chronic - Assessment and Plan (Free Text) Plan: PTS BP STABLE OFF COREG AND ACEI. WOULD CONTINUE WITH 1 ANTIHYPERTENSIVE FOR NOW. CONSIDER IVF IF ORTHOSTATIC. MONITOR LYTES. CHECK CPK. ECHO AND PRIOR IMAGING REVIEWED. CHECK CPK AND TFTS. EKG IN AM.
[2018-07-07] MEDS: Tiotropium 18 mcg Cap For Inhalation INH SCH (22:15)
[2018-07-08 00:40] VITALS: RESP 20
[2018-07-08 06:31] LABS: HEMOGLOBIN 11.1 g/dL (12.0-18.0); MEAN CELL VOLUME 103.9 fl (80.0-94.0); MEAN CORPUSCULAR HGB CONC 32.7 g/dL (33.0-37.0); RBC 3.25 Mil/uL (4.40-5.90); RED CELL DISTRIBUTION WIDTH 15.1 % (11.5-14.5); WHITE BLOOD COUNT 6.2 K/uL (4.8-10.8)
[2018-07-08 06:42] LABS: CALCIUM 9.7 mg/dL (8.4-10.2)
[2018-07-08 07:03] LABS: T3 1.06 nmol/L (1.49-2.60)
[2018-07-08 07:53] VITALS: BP 149/74; TEMP 97.7
[2018-07-08] MEDS: Pantoprazole 40 mg EC Tab PO SCH (08:35)
[2018-07-08] MEDS: levoFLOXacin 500 MG TAB PO SCH (08:35)
[2018-07-08 10:47] VITALS: PULSE 93; O2SAT 98
--- NOTE | 2018-07-08 11:13 | CARD ---
APPROVED REPORT Date of service: 07/08/2018 EKG Measurement Heart [id number] <Conclusion> Normal sinus rhythm Minimal voltage criteria for LVH, may be normal variant Nonspecific ST abnormality Abnormal ECG
--- NOTE | 2018-07-08 12:08 | CP.PCM.DIS ---
Provider - Provider Date of Admission: 07/03/18 10:34 Attending physician: Jos Olson MD Time Spent in preparation of Discharge (in minutes): 38 Diagnosis - Discharge Diagnosis (1) Dizziness Status: Acute (2) Hypotension Status: Resolved (3) Pneumonia Status: Acute (4) CKD (chronic kidney disease) stage 4, GFR 15-29 ml/min Status: Acute Hospital Course - Lab Results Lab Results: Micro Results 07/03/18 09:20 Blood-Venous Blood Culture - Final NO GROWTH AFTER 5 DAYS 07/03/18 09:20 Blood-Venous Gram Stain - Final TEST NOT PERFORMED 07/03/18 09:34 Blood-Venous Blood Culture - Final NO GROWTH AFTER 5 DAYS 07/03/18 09:34 Blood-Venous Gram Stain - Final TEST NOT PERFORMED 07/03/18 10:55 Urine Urine Culture - Final No Growth (<1,000 CFU/ML) Most Recent Lab Values WBC 6.2 K/uL (4.8-10.8) 07/08/18 05:50 RBC 3.25 Mil/uL (4.40-5.90) L 07/08/18 05:50 Hgb 11.1 g/dL (12.0-18.0) L 07/08/18 05:50 Hct 33.8 % (35.0-51.0) L 07/08/18 05:50 MCV 103.9 fl (80.0-94.0) H D 07/08/18 05:50 MCH 34.0 pg (27.0-31.0) H 07/08/18 05:50 MCHC 32.7 g/dL (33.0-37.0) L 07/08/18 05:50 RDW 15.1 % (11.5-14.5) H 07/08/18 05:50 Plt Count 173 K/uL (130-400) 07/08/18 05:50 MPV 8.9 fl (7.2-11.7) 07/04/18 04:45 Neut % (Auto) 61.0 % (50.0-75.0) 07/04/18 04:45 Lymph % (Auto) 20.4 % (20.0-40.0) 07/04/18 04:45 [place]borne % (Auto) 14.2 % (0.0-10.0) H 07/04/18 04:45 Eos % (Auto) 3.8 % (0.0-4.0) 07/04/18 04:45 Baso % (Auto) 0.6 % (0.0-2.0) 07/04/18 04:45 Neut # (Auto) 3.9 K/uL (1.8-7.0) 07/04/18 04:45 Lymph # (Auto) 1.3 K/uL (1.0-4.3) 07/04/18 04:45 Osborne # (Auto) 0.9 K/uL (0.0-0.8) H 07/04/18 04:45 Eos # (Auto) 0.2 K/uL (0.0-0.7) 07/04/18 04:45 Baso # (Auto) 0.0 K/uL (0.0-0.2) 07/04/18 04:45 ESR 102 mm/hr (0-20) H 07/08/18 05:50 PT 17.2 Seconds (9.8-13.1) H 07/03/18 09:34 INR 1.5 07/03/18 09:34 APTT 44.6 Seconds (25.6-37.1) H 07/03/18 09:34 pO2 40 mm/Hg (30-55) 07/03/18 10:02 VBG pH 7.35 (7.32-7.43) 07/03/18 10:02 VBG pCO2 41 mmHg (40-60) 07/03/18 10:02 VBG HCO3 22.0 mmol/L 07/03/18 10:02 VBG Total CO2 23.9 mmol/L (22-28) 07/03/18 10:02 VBG O2 Sat (Calc) 77.7 % (40-65) H 07/03/18 10:02 VBG Base Excess -2.9 mmol/L (0.0-2.0) L 07/03/18 10:02 VBG Potassium 3.6 mmol/L (3.6-5.2) 07/03/18 10:02 Sodium 137.0 mmol/L (132-148) 07/03/18 10:02 Chloride 99.0 mmol/L (98-107) 07/03/18 10:02 Glucose 138 mg/dL (75-110) H 07/03/18 10:02 Lactate 3.1 mmol/L (0.7-2.1) H 07/03/18 10:02 FiO2 21.0 % 07/03/18 10:02 Blood Gas Comments Lac=3.1 07/03/18 10:02 Crit Value Called To hailey Bardales 07/03/18 10:02 Crit Value Called By 22 07/03/18 10:02 Crit Value Read Back Y 07/03/18 10:02 Blood Gas Notified Time 1008 07/03/18 10:02 Sodium 139 mmol/l (132-148) 07/08/18 05:50 Potassium 4.0 MMOL/L (3.6-5.0) 07/08/18 05:50 Chloride 108 mmol/L (98-107) H 07/08/18 05:50 Carbon Dioxide 24 mmol/L (22-30) 07/08/18 05:50 Anion Gap 11 (10-20) 07/08/18 05:50 BUN 32 mg/dl (9-20) H 07/08/18 05:50 Creatinine 2.6 mg/dl (0.8-1.5) H 07/08/18 05:50 Est GFR ( Amer) 30 07/08/18 05:50 Est GFR (Non-Af Amer) 24 07/08/18 05:50 POC Glucose (mg/dL) 114 mg/dL (65-110) H 07/03/18 09:00 Random Glucose 105 mg/dL (75-110) 07/08/18 05:50 Calcium 9.7 mg/dL (8.4-10.2) 07/08/18 05:50 Magnesium 1.9 MG/DL (1.6-2.3) 07/08/18 05:50 Total Bilirubin 2.1 mg/dl (0.2-1.3) H 07/04/18 04:45 AST 94 U/L (17-59) H 07/04/18 04:45 ALT 66 U/L (21-72) 07/04/18 04:45 Alkaline Phosphatase 50 U/L (38-126) 07/04/18 04:45 Total Creatine Kinase 42 U/L (55-170) L 07/08/18 05:50 Troponin I < 0.0120 ng/mL (0.00-0.120) 07/03/18 09:34 NT-Pro-B Natriuret Pep 1350 pg/ml (0-900) H 07/03/18 09:34 Total Protein 7.3 G/DL (6.3-8.2) 07/04/18 04:45 Albumin 3.1 g/dL (3.5-5.0) L 07/04/18 04:45 Globulin 4.2 gm/dL (2.2-3.9) H 07/04/18 04:45 Albumin/Globulin Ratio 0.7 (1.0-2.1) L 07/04/18 04:45 Free T4 1.59 ng/dL (0.78-2.19) 07/08/18 05:50 Total T3 1.06 nmol/L (1.49-2.60) L 07/08/18 05:50 TSH 3rd Generation 4.78 mIU/ML (0.46-4.68) H 07/08/18 05:50 Venous Blood Potassium 3.6 mmol/L (3.6-5.2) 07/03/18 10:02 Urine Color Opal (YELLOW) 07/03/18 10:55 Urine Clarity Slighty-cloudy (Clear) 07/03/18 10:55 Urine pH 6.0 (5.0-8.0) 07/03/18 10:55 Ur Specific [place] 1.016 (1.003-1.030) 07/03/18 10:55 Urine Protein Negative mg/dL (NEGATIVE) 07/03/18 10:55 Urine Glucose (UA) Neg mg/dL (Normal) 07/03/18 10:55 Urine Ketones Negative mg/dL (NEGATIVE) 07/03/18 10:55 Urine Blood Moderate (NEGATIVE) 07/03/18 10:55 Urine Nitrate Negative (NEGATIVE) 07/03/18 10:55 Urine Bilirubin Negative (NEGATIVE) 07/03/18 10:55 Urine Urobilinogen 4.0 mg/dL (0.2-1.0) 07/03/18 10:55 Ur Leukocyte Esterase Neg Kostas/uL (Negative) 07/03/18 10:55 - Hospital Course Hospital Course: 73 y/o M with a PMHx of HTN, HLD and asthma was admitted due dizziness and LH. Recently d/c from hospital for rhabhdomylosis/pneumonia 2 days before admission. In ED was noted hypotensive. Patient was evaluated by Cardiology during stay, BP were optimized. Patient completed his levaquin course. Labs and imaging stable and patient condition improved and was discharge home on Amlodipine daily. Instructions to f/u with PCP next week. PT going home to treatment. Discharge Exam - Head Exam Head Exam: NORMAL INSPECTION - Respiratory Exam Respiratory Exam: Clear to PA & Lateral - Cardiovascular Exam Cardiovascular Exam: REGULAR RHYTHM, +S1, +S2 - GI/Abdominal Exam GI & Abdominal Exam: Normal Bowel Sounds, Soft. absent: Distended, Tenderness - Neurological Exam Neurological exam: Alert, CN II-XII Intact, Oriented x3 - Skin Skin Exam: Dry, Warm Discharge Plan - Discharge Medications Prescriptions: amLODIPine [Norvasc] 5 mg PO DAILY #30 tab - Follow Up Plan Condition: FAIR Disposition: HOME/ ROUTINE Instructions: Pneumonia in Adults, Sepsis in Adults Additional Instructions: khang con Dr Whitney cano 3 a las 11am Referrals: Jos Olson MD [Staff Provider] -
== END 2018-07-08 14:19 | disposition home health service (06) | DRG 194 ==
LOC: H.ER 08:57 → H.ERHOLD 10:34 → H.TEL 13:06 → H.MEDSURG1 07-06 02:42
PROVIDERS: ADMIT Family Medicine; ATTEND Family Medicine
DX: J18.9 Pneumonia, unspecified organism (principal); N18.4 Chronic kidney disease, stage 4 (severe); I12.9 Hypertensive chronic kidney disease with stage 1 through stage 4 chronic kidney disease, or unspecified chronic kidney disease; I95.9 Hypotension, unspecified; R91.8 Other nonspecific abnormal finding of lung field; D64.9 Anemia, unspecified; E78.00 Pure hypercholesterolemia, unspecified; E78.5 Hyperlipidemia, unspecified; J45.909 Unspecified asthma, uncomplicated; Z79.82 Long term (current) use of aspirin; Z87.891 Personal history of nicotine dependence